=== PATIENT | male | born 1975 | race Caucasian/White ===

== ENCOUNTER 2025-03-15 15:52 | Emergency (ER) | payer OTHER, SELFPAY ==
[2025-03-15 15:54] VITALS: BP 154/108; PULSE 107; RESP 18; TEMP 36.2; O2SAT 99; BMI 33.5
--- OUTSIDE RECORDS SUMMARY | 2025-03-15 15:54 | XMS_ITS | Clinical Summary ---
Author Organization [employer] [facility] Address [address] [place] [id number] Care Team Providers Care Ceramic Engineering Professor Name Role Phone Eugene Prater MD, Michael Andrew-Sykes MD Primary Care P rovider Allergies No known active allergies Medications CPAPIndications:Un specified sleep apnea CPAP, heated humidifier, mask, headgear, filters and tubing. For home use. Pressure: 10-14 cm Length of Need: Indefinitie 1 unit 0 04/10/20 14 Active durable medical equipment (DME)Indications:O SA on CPAP CPAP maskadapter, face pad 1 Each 10/25/19 18 Active pseudoephedrine (Sudogest) 30 mg tabletIndications: Nasal congestion Take 1 Tablet (30 mg) by mouth every 4 hours if needed for Nasal Congestion. 30 tablet. 4 02/08/20 21 Active naproxen (NAPROSYN) 500 mg tabletIndications: Pain of right heel Take 1 Tablet (500 mg) by mouth every 12 hours if needed for Pain. 30 Tablet 2 12/06/19 24 Active albuterol HFA (PRO-AIR; VENTOLIN; PROVENTIL) 90 mcg/actuation inhalerIndications :Mild intermittent asthma with acute exacerbation (HC) Inhale 1-2 Puffs by mouth every 4 hours if needed for Shortness Of Breath or Wheezing. 3 Each 3 03/25/20 24 Active rosuvastatin (CRESTOR) 10 mg tabletIndications: Hyperlipidemia, unspecified hyperlipidemia type TAKE ONE TABLET BY MOUTH AT BEDTIME 90 Tablet 3 09/22/19 25 Active sertraline 100 mg tabletIndications: Major depressive disorder, recurrent episode, moderate (HC) Take 1.5 Tablets (150 mg) by mouth once daily in the morning. 135 Tablet 3 10/25/19 25 Active pantoprazole 40 mg delayed-release tabletIndications: Chronic GERD Take 1 Tablet (40 mg) by mouth once daily. 90 Tablet 3 10/25/19 25 Active BIPAPIndications:O SA (obstructive sleep apnea) BIPAP (E0470) machine for home use at pressure: 15/11 cmw, Choice of mask (A7030 or A7034) w/full face cushion (A7031) x1/mo, nasal cushion (A7032) x2/mo, or nasal pillows (A7033) x 2/mo; Length of Need: 99 months; Frequency of use: Daily 1 Each 11/14/19 25 Active Active Problems Problem Noted Date Diagnosed Date Mild intermittent asthma with acute exacerbation 08/12/2024 ANMOL 02/19/2006 AHI-56 12/23/2015 Nasal septal deviation 02/10/2014 Dyspepsia and other specifie d disorders of function of stomach 07/18/2010 Anxiety state, unspecified 08/02/2009 IBS (irritable bowel syndrome) 04/09/2009 Fibromyalgia 04/09/2009 Tobacco use disorder 02/19/2008 Major depressive disorder, recurrent episode, mo derate 02/19/2008 Encounters Date Type Department Care Team Description 01/22/2025 11:30 AM CDT Office Visit [facility] [address] [place] [address] Anika Hair PA Leg Pain/problem (Left) 01/22/2025 Travel from Last 3 Months Immunizations Immunization Administration Dates Next Due COVID-19 vaccine (Ahaali 30mcg/0.3mL) PF, MDV 08/10/2021,11/30/2020,11/09/2020 DT (Age < 7 years) 02/03/1985, 4,1974,1973 DTaP 12/12/1978,09/29/1975 Hepatitis A (Adult) 01/31/1999 Influenza, IIV3 (Age >=3 years) 07/02/2004 MMR 01/07/1993,11/27/1991,08/06/1975 Polio Virus, Unspecified 12/12/1978,08/28/1978,0 09/29/1975 Td (Age >=7 Years) 04/06/1998,11/27/1991 Td, Preservative Free (age > = 7 Years) 11/14/2024 Tdap 10/17/2011 Tuberculin (PPD) 03/06/1977 Family History Medical History Relation Name Comments Heart Disease Father Heart Disease Maternal Grandfather Heart Disease Other Relation Name Status Comments Father Maternal Grandfather Other Social History Tobacco Use Types Packs/Day Years Used Date Smoking Tobacco: Former Cigarettes 0.3 4 0 10/16/2007 - 10/16/2011 Smokeless Tobacco: Current Chew Tobacco Cessation:Ready to Q uit: No; Counseling Given: Yes Alcohol Use Standard Drinks/Week Comments Yes 5 (1 standard drink = 0.6 oz pur e alcohol) 4 times a week PHQ-2 Answer Date Recorded PHQ-2 TOTAL SCORE 0 10/24/2024 Social Connections Answer Date Recorded Do you often feel lonely or isolated from those around you? 0 01/22/2025 Financial Resource Strain Answer Date R ecorded Difficulty of Paying Living Expenses 3 01/22/2025 Difficulty of Paying Living Expenses Not on file 01/22/2025 Food Insecurity Answer Date Recorded Do you worry your food will run out before you are able to buy more? 1 01/22/2025 Transportation Needs Answer Date Record ed Does lack of transportation keep you from medica l appointments? 1 01/22/2025 Does lack of transportation keep you from work, meetings or getting things that you need? 1 01/22/2025 Housing Stability Answer Date Recorded What is your housing situation today? 1 01/22/2025 Utilities Answer Date Recorded Do you have trouble paying f or utilities (for example, heat, electricity, water, phone)? 1 01/22/2025 Sex and Gender Information Value Date Recorded Sex Assigned at Not on file Legal Sex Male 6:13 AM SERVICE GIRL Gender Identity Not on file Sexual Orientation Not on file Obstetrics History Last Filed Vital Signs Vital Sign Reading Time Taken Comments Blood Pressure 130/89 01/22/2025 11:31 AM CDT Pulse 88 01/22/2025 11:31 AM CDT Temperature 36.7 C (98.1 F) 08/12/2024 10:26 AM SERVICE GIRL Respiratory Rate 18 12/03/2017 1:50 PM CDT Oxygen Saturation 94% 01/22/2025 11: 31 AM CDT Inhaled Oxygen Concentration - - Weight 108.7 kg (239 lb 9.6 oz) 11/14/2024 9:59 AM CDT Height 175.6 cm (5' 9.13) 11/14/2024 9:59 AM CD T Body Mass Index 35.25 11/14/2024 9:59 AM CDT Plan of Treatment Health Maintenance Due Date Last Done Comments Hepatitis B series for 19+ ( 1 of 3 - 19+ 3-dose series) 1993 Pneumococcal series for age 50+ (1 of 2 - PCV) 1993 Colonoscopy through age 75 2019 Zoster (shingles) series for age 50+ (1 of 2) 2024 COVID-19 vaccine series ( season) 2024 08/10/2021, 11/30/2020, 11/09/2020 Influenza Vaccine (#1) 2025 07/02/2004 Depression screening for age 12+ 10/24/2025 10/24/2024, 08/08/2023, 08/07/2023, Additional history exists BMI (ht and wt on same day) for age 18+ 11/14/2025 11/14/2024, 10/24/2024, 04/15/2020, Additional history exists Lipids for age 45-75 11/14/2029 11/14/2024, 12/06/2023, 12/06/2023, Additional history exists Tetanus booster 11/14/2034 11/14/2024, 10/04, 04/06/1998, Additional history exists HIV for age 15-65 Completed 12/16/2015 Hepatitis C screening for ag e 18-79 Completed 12/16/2015, 12/16/2015 Procedures Procedure Name Priority Date/Time Associated Diagnosis Comments LIPID PANEL Routine 11/14/2024 11:07 AM CDT Routine general medical examination at a health care facility ANTI HIV 1/2 Routine 12/16/2015 11:48 AM CDT Screen for STD (sexually transmitted disease) ANTI HCV Routine 12/16/2015 11:48 AM CDT Screen for STD (sexually transmitted disease) from Last 3 Months or Most Recently Relevant to Health Maintenance Results * (ABNORMAL) LIPID PANEL (11/14/2024 11:07 AM CDT) CHOLESTEROL, TOTAL 158 <200 mg/dL [facility] HDL CHOLESTEROL 61 > OR = 40 mg/dL [facility] TRIGLYCERIDES 476(H) <150 mg/dL [facility] Comment: If a non-fasting specimen was collected, consider repeat triglyceride testing on a fasting specimen if clinically indicated. Jalen et al. J. of Clin. Lipidol. 2015;9:129-169. LDL-CHOLESTEROL [facility]ues [employer] [facility] Comment: LDL cholesterol not calculated. Triglyceride levels greater than 400 mg/dL invalidate calculated LDL results. Reference range: <100 Desirable range <100 mg/dL for primary prevention; <70 mg/dL for patients with CHD or diabetic patients with > or = 2 CHD risk factors. LDL-C is now calculated using the Bola-Jared calculation, which is a validated novel method providing better accuracy than the Friedewald equation in the estimation of LDL-C. Bola SS et al. STELLA. 2013;310(19): 7708-4196 (http://education.Trubates/faq/BTU465) CHOL/HDLC RATIO 2.6 <5.0 (calc) [facility] NON HDL CHOLESTEROL 97 <130 mg/dL (calc) [facility] Comment: For patients with diabetes plus 1 major ASCVD risk factor, treating to a non-HDL-C goal of <100 mg/dL (LDL-C of <70 mg/dL) is considered a therapeutic option. Blood BLOOD SPECIMEN / Unknown 11/14/2024 11:07 AM CDT 11/14/2024 11:08 AM CDT Bacilio Vasquez MD CHEMISTRY Final Result [facility] [facility] [address] [place] [address], [employer] [facility] [address] [place] [address] * (ABNORMAL) ANTI HCV (12/16/2015 11:48 AM CDT) Pathologist [facility] HEPATITIS C ANTIBODY Reactive, Preliminary Positive(A) Non-React nela 12/17/2015 8:49 AM CDT [facility] Blood specimen (specimen) BLOOD SPECIMEN / Unknown Venipuncture / Unknown 12/16/2015 11:48 AM CDT 12/16/2015 11:49 AM CDT [facility] LAB[facility]ATORY - 12/17/2015 8:49 AM CDT Presumptive evidence of antibodies to HCV. Reflexed to HCV RNA Quant (See separate report). us Garett Pearson MD SEND OUTS Final Resu lt [facility] [address] [place] [address], [place] * ANTI HIV 1/2 (12/16/2015 11:48 AM CDT) [facility] HIV-1/HIV-2 ANTIBODY Non-Reacti ve Non-Reacti ve 12/16/2015 5:39 PM CDT [facility] TR[facility] LABORAT[facility] Blood specimen (specimen) BLOOD SPECIMEN / Unknown Venipuncture / Unknown 12/16/2015 11:48 AM CDT 12/16/2015 11:49 AM CDT Narrative [facility] - 12/16/2015 5:39 PM CDT HIV-1 p24 and HIV-1/HIV-2 Ab not detected Garett Pearson MD SEND OUTS Final Resu lt [facility] [address] [place] [address], [place] from Last 3 Months or Most Recently Relevant to Health Maintenance Insurance BLUE CROSS OF NON-TX-ITS Care Teams Ceramic Engineering Professor Relationship Specialty Start Date End Date Bacilio Vasquez MD [address] [place] [address] PCP - General Family Practice 11/14/24 Eugene Prater MD Orthopedics Surgery - Orthopedics 10/09/11
--- NOTE | 2025-03-15 16:56 | ED.GENADULT ---
HPI - General Adult General Chief complaint: Anxiety Stated complaint: heart attack Time Seen by Provider: 03/15/25 16:26 History of Present Illness HPI narrative: This 50-year-old male comes in with his significant other. He is reporting lots of anxiety and some feeling of chest discomfort. He states that he is drinking a pt of vodka daily. His last drink was yesterday and he is feeling diaphoretic with some nausea and lots of anxiety. He does not report any shortness of breath. He states that he does have a history of smoking tobacco products and current history of alcohol abuse. He also reports family history of heart disease. He currently does not have any chest discomfort. He is mildly tremulous from alcohol withdrawal symptoms. Related Data Home Medications ?Medication ?Instructions ?Recorded ?Confirmed omeprazole 10 mg capsule,delayed 10 mg PO QDAY 07/02/23 03/15/25 release sertraline 100 mg tablet mg PO 07/02/23 01/02/25 rosuvastatin 10 mg tablet 10 mg PO QPM 01/02/25 03/15/25 Allergies Allergy/AdvReac Type Severity Reaction Status Date / Time No Known Drug Allergies Allergy Verified 01/02/25 13:11 Review of Systems Status of ROS: Reports: 10 or more systems reviewed and unremarkable except as noted in History and below Narrative: Constitutional: No fevers, no weight gain or loss. Eyes: No discharge. No vision changes. HENT: No congestion, no sore throat, no ear pain. Cardiovascular: No palpitations. Respiratory: No shortness of breath, no wheezes, no cough. Gastrointestinal: No abdominal pain, no vomiting, no diarrhea. Genitourinary: No dysuria, no hematuria. Musculoskeletal: Normal range of motion. Skin: No rashes, no pruritis. Neurological: No dizziness, weakness, sensory change, speech change. Endo/Heme/Allergies: No bruising or bleeding. No polydipsia. Pysch: no suicidality. He reports lots of anxiety. Alcohol abuse. All other systems reviewed and are negative. [facility] Medical History (Updated 03/15/25 @ 19:14 by Alessandro Mohan MD) Overweight ?E66.3 - Overweight (ICD-10) Asthma ?J45.909 - Unspecified asthma, uncomplicated (ICD-10) Depression ?F32.A - Depression, unspecified (ICD-10) Hyperlipidemia ?E78.5 - Hyperlipidemia, unspecified (ICD-10) GERD (gastroesophageal reflux disease) ?K21.9 - Gastro-esophageal reflux disease without esophagitis (ICD-10) Exam Narrative: Exam Narrative: Constitutional: Well-developed, well-nourished. Diaphoretic. HEENT: Normocephalic, atraumatic. Neck: Normal range of motion. Nontender. Supple. Heart: Regular. No murmurs. Borderline tachycardia. Intact distal pulses. Lungs: Clear to auscultation. No wheezes, rhonchi, or rales. Abdomen: Normal bowel sounds. Nontender. No rebound tenderness. Genitalia: Deferred. Back: No midline tenderness. Normal range of motion. Extremities: Normal range of motion. No injury. Skin: Intact. No rash. Warm. No erythema or pallor. Neurologic: No altered sensation. No weakness. Alert and oriented. Psychiatric: No suicidality. Withdrawal symptoms from alcohol. Anxiety. Nursing notes and vitals signs are reviewed. Const: Vital Signs, click to edit/add: Vital Signs - 24 hr 03/15/25 15:54 Temperature 97.1 F L Pulse Rate [Right Pulse Oximeter] 107 H Respiratory Rate 18 Blood Pressure [Ri ght Upper Arm] 154/108 H Pulse Oximetry 99 Oxygen Delivery Me thod Room Air Course Vital Signs Vital signs: Initial Vital Signs Temperature 97.1 F L 03/15/25 15:54 Temperature Source Temporal Artery Scan 03/15/25 15:54 Pulse Rate 107 H 03/15/25 15:54 Pulse Rhythm Regular 03/15/25 15:54 Pulse Strength 3+ Normal 03/15/25 15:54 Respiratory Rate 18 03/15/25 15:54 Blood Pressure 154/108 H 03/15/25 15:54 Blood Pressure Mean 123 H 03/15/25 15:54 Blood Pressure Position Sitting 03/15/25 15:54 Pulse Oximetry 99 03/15/25 15:54 Oxygen Delivery Method Room Air 03/15/25 15:54 Vital Signs Temperature 97.1 F L 03/15/25 15:54 Pulse Rate 107 H 03/15/25 15:54 Respiratory Rate 18 03/15/25 15:54 Blood Pressure 154/108 H 03/15/25 15:54 Pulse Oximetry 99 03/15/25 15:54 Oxygen Delivery Method Room Air 03/15/25 15:54 Temperature 97.1 F L 03/15/25 15:54 Pulse Rate 107 H 03/15/25 15:54 Respiratory Rate 18 03/15/25 15:54 Blood Pressure 154/108 H 03/15/25 15:54 Pulse Oximetry 99 03/15/25 15:54 Oxygen Delivery Method Room Air 03/15/25 15:54 Medications Administered Medications: Discontinued Medications Generic Name Dose Route Start Last Admin Trade Name Anamika PRN Reason Stop Dose Admin Sodium Chloride 1,000 mls @ 1,000 mls/hr 03/15/25 17:00 03/15/25 17:19 0.9 % Sodium Chloride 1000 Ml IV 03/15/25 17:59 1,000 mls/hr .Q1H MICHAEL Administration Lorazepam 1 mg 03/15/25 16:54 03/15/25 17:20 Lorazepam 1 Mg Tablet PO 03/15/25 16:55 1 mg ONCE ONE Administration Ondansetron HCl 4 mg 03/15/25 16:54 03/15/25 17:19 Ondansetron 2 Mg/Ml Inj IVP 03/15/25 16:55 4 mg ONCE ONE Administration Medical Decision Making MDM Narrative Medical decision making narrative: This patient comes in reporting anxiety in diaphoresis and states that he has been drinking lots of alcohol and has not had a drink since yesterday. He is in some withdrawal symptoms. The patient did receive an IV including normal saline and Zofran. He received an oral dose of Ativan 1 mg and all this helped him feel significantly better. Labs are acquired and these returned with reassuring results. His liver enzymes are a up a bit but nothing serious. He was happy to hear that his heart is showing normal results on EKG and troponin. I did offer detox to him but he prefers to return home. He does have a person that stays with him and so I did prescribe some tablets of Ativan from the [employer] machine. He understands that this does not mix with alcohol and states that he will have his significant other remove all the alcohol from the house. Lab Data Labs: Lab Results 03/15/25 Range/Units 17:05 WBC 9.42 (4.50-11.00) K/uL RBC 5.21 (4.30-5.90) m/uL Hgb 16.4 (13.5-17.5) gm/dL Hct 48.2 (37.0-53.0) % MCV 93 (80-100) fL MCH 32 (26-34) pg MCHC 34 (32-36) gm/dL RDW Coeff of Myke 11.5 (11.5-15.5) % Plt Count 151 (140-440) K/uL Neut % (Auto) 77.4 H (42.0-72.0) % Lymph % (Auto) 16.2 L (20-44) % Vigo % (Auto) 5.4 (0.0-11.0) % Eos % (Auto) 0.4 (0.0-7.0) % Baso % (Auto) 0.3 (0.0-3.0) % Neut # (Auto) 7.30 H (1.7-7.0) K/uL Lymph # (Auto) 1.50 (0.90-2.90) K/uL Vigo # (Auto) 0.50 (0.00-0.90) K/UL Eos # (Auto) 0.04 (0.00-0.50) K/uL Baso # (Auto) 0.03 (0.00-0.30) K/uL Abs Immat Gran (auto) 0.03 (0.00-0.30) K/uL Imm/Tot Granulo (auto) 0.3 % Sodium 138 (135-149) mmol/L Potassium 4.1 (3.6-5.1) mmol/L Chloride 101 (96-114) mmol/L Carbon Dioxide 24 (20-32) mmol/L Anion Gap 13 (7-15) mEq/L BUN 16 (7-30) mg/dL Creatinine 0.8 (0.5-1.5) mg/dL Estimated Creat Clear 105.69 Estimated GFR 107 ml/min Glucose 118 H (60-115) mg/dL Calcium 10.5 (8.4-10.6) mg/dL Total Bilirubin 2.2 H (0.1-1.5) mg/dL Direct Bilirubin 0.5 (0.0-0.5) mg/dL AST 77 H (12-35) U/L ALT 59 H (4-50) U/L Alkaline Phosphatase 128 (40-150) U/L Total Protein 8.3 (6.0-8.3) g/dL Albumin 5.1 H (3.3-5.0) g/dL Lipase 121 (23-300) U/L POC Troponin I 0.01 (0.01-0.04) ng/ml ECG Data Attestation: I personally reviewed and interpreted this ECG as follows: Interpretation: Sinus tachycardia, rate 102 beats per minute. There are no specific ST or T-wave abnormalities. Discharge Plan Discharge Clinical Impression: Alcohol withdrawal, Acute anxiety Patient Disposition: Home w/ Parent or Adult Condition: Improved Additional Instructions: Avoid alcohol and take medication as needed and directed. Follow up with MD or return if symptoms are worsening. Prescriptions: No Action sertraline 100 mg tablet PO omeprazole 10 mg capsule,delayed release(DR/EC) 10 mg PO QDAY rosuvastatin 10 mg tablet 10 mg PO QPM Follow Up/Referrals: Provider,Not a Local [Primary Care Provider, Family Practice] Stand Alone Forms: [employer] Info Instructions
[2025-03-15 17:16] LABS: Hematocrit 48.2 % (37.0-53.0); Hemoglobin* 16.4 gm/dL (13.5-17.5); Immature Granulocytes Abs Auto 0.03 K/uL (0.00-0.30); Immature Granulocytes Pct Auto 0.3 %; Mean Corpuscular HGB Conc 34 gm/dL (32-36); Mean Corpuscular Hemoglobin 32 pg (26-34); Mean Corpuscular Volume 93 fL (80-100); RDW Coefficient of Variation % 11.5 % (11.5-15.5); Red Blood Count 5.21 m/uL (4.30-5.90); White Blood Count* 9.42 K/uL (4.50-11.00)
[2025-03-15] MEDS: ONDANSETRON 2 MG/ML inj 4 MG IVP (17:19)
[2025-03-15 17:23] LABS: Lymphocytes Absolute Auto 1.50 K/uL (0.90-2.90); Slide Review Reflex No
[2025-03-15 17:39] LABS: Albumin* 5.1 g/dL (3.3-5.0); Chloride* 101 mmol/L (96-114); Potassium* 4.1 mmol/L (3.6-5.1); Sodium* 138 mmol/L (135-149)
[2025-03-15 17:40] VITALS: BP 162/102; PULSE 96; RESP 18; O2SAT 96
[2025-03-15 17:41] LABS: Blood Urea Nitrogen* 16 mg/dL (7-30); Creatinine* 0.8 mg/dL (0.5-1.5); Est. Creatinine Clearance* 105.69; Estimated Glomerular Filt Rate 107 ml/min
[2025-03-15 17:42] LABS: Alanine Aminotransferase* 59 U/L (4-50); Alkaline Phosphatase* 128 U/L (40-150); Anion Gap 13 mEq/L (7-15); Aspartate Amino Transferase* 77 U/L (12-35); Bilirubin Direct* 0.5 mg/dL (0.0-0.5); Bilirubin Total* 2.2 mg/dL (0.1-1.5); Calcium* 10.5 mg/dL (8.4-10.6); Carbon Dioxide* 24 mmol/L (20-32); Glucose* 118 mg/dL (60-115); Total Protein* 8.3 g/dL (6.0-8.3)
[2025-03-15 19:06] LABS: Troponin, Point-of-Care* 0.01 ng/ml (0.01-0.04)
[2025-03-15 19:35] VITALS: BP 159/109; PULSE 88; RESP 18; O2SAT 95
== END 2025-03-15 19:45 | disposition home or self-care (01) ==
PROVIDERS: Emergency Provider Emergency Medicine Emergency Medical Services
DX: F10.130 Alcohol abuse with withdrawal, uncomplicated (principal); F41.9 Anxiety disorder, unspecified
CPT/HCPCS: 36415; 80048; 80076; 83690; 84484; 85025; 93005; 96374; 99284; A9270; J2405; J7030

== ENCOUNTER 2025-05-22 06:49 | Inpatient (IN) | payer OTHER, SELFPAY ==
[2025-05-22] VITALS (23 sets, daily range): BP systolic 137–182; BP diastolic 91–117; PULSE 73–115; RESP 16–28; TEMP 36.2–37.9; O2SAT 24–97; BMI 19.9; BMI 34.0
--- OUTSIDE RECORDS SUMMARY | 2025-05-22 06:51 | XMS_ITS | Clinical Summary ---
Author Organization [employer] [facility] Address [address] [place] [id number] Care Team Providers Care Campus Director Name Role Phone Eugene Prater MD, Michael [...] depressive disorder, recurrent episode, mo derate 02/19/2008 Immunizations Immunization Administration Dates Next Due COVID-19 vaccine ([employer] 30mcg/0.3mL) PF, MDV 08/10/2021,11/30/2020,11/09/2020 DT (Age < [...] on file Legal Sex Male 6:13 AM CARDIO TECH Gender Identity Not on file Sexual Orientation Not on file Obstetrics History Last Filed Vital Signs Vital Sign Reading Time Taken Comments Blood Pressure 130/89 01/22/2025 11:31 AM CDT Pulse 88 01/22/2025 11:31 AM CDT Temperature 36.7 C (98.1 F) 08/12/2024 10:26 AM CARDIO TECH Respiratory Rate 18 12/03/2017 1:50 PM CDT [...] of 2) 2024 COVID-19 vaccine series ( - 2024- season) 2025 08/10/2021, 11/30/2020, 11/09/2020 Influenza Vaccine (#1) 2025 07/02/2004 Depression screening for age 12+ 10/24/2025 10/24/2024, 08/08/2023, 08/07/2023, Additional history exists BMI (ht and wt on same day) for age 18+ 11/14/2025 11/14/2024, 10/24/2024, 04/15/2020, Additional history exists Lipids for age 45-75 11/14/2029 11/14/2024, 12/06/2023, 12/06/2023, Additional history exists Tetanus booster 11/14/2034 11/14/2024, 10/04, 04/06/1998, Additional history exists RSV vaccine for adults or (1 - 1-dose 75+ series) 2049 HIV for age 15-65 Completed 12/16/2015 Hepatitis [...] (ABNORMAL) LIPID PANEL (11/14/2024 11:07 AM CDT) [facility] Signature CHOLESTEROL, TOTAL 158 <200 mg/dL [facility] HDL CHOLESTEROL 61 > OR = 40 mg/dL [facility] TRIGLYCERIDES 476(H) <150 mg/dL [facility] Comment: If a non-fasting specimen was collected, consider repeat triglyceride testing on a fasting specimen if clinically indicated. Jalen et al. J. of Clin. Lipidol. 2015;9:129-169. LDL-CHOLESTEROL Ques [employer] Comment: LDL cholesterol not calculated. Triglyceride levels greater than 400 mg/dL invalidate calculated LDL results. Reference range: <100 Desirable range <100 mg/dL for primary prevention; <70 mg/dL for patients with CHD or diabetic patients with > or = 2 CHD risk factors. LDL-C is now calculated using the Ángel calculation, which is a validated novel method providing better accuracy than the Friedewald equation in the estimation of LDL-C. Bola HARVEY et al. STELLA. 2013;310(19): 7992-8726 (http://education.Trading Block/faq/BXW939) CHOL/HDLC RATIO 2.6 <5.0 (calc) [facility] NON HDL CHOLESTEROL 97 <130 mg/dL (calc) [facility] Comment: For patients with diabetes plus 1 major ASCVD risk factor, treating to a non-HDL-C goal of <100 mg/dL (LDL-C of <70 mg/dL) is considered a therapeutic option. Blood BLOOD SPECIMEN / Unknown 11/14/2024 11:07 AM CDT 11/14/2024 11:08 AM CDT Bacilio Vasquez MD CHEMISTRY Final Result [employer] [facility] [address] [place] [address], [facility] [address] [facility] [place] [address] * (ABNORMAL) ANTI HCV (12/16/2015 11:48 AM CDT) HEPATITIS C ANTIBODY Reactive, Preliminary Positive(A) Non-React nela 12/17/2015 8:49 AM CDT [facility] Blood specimen (specimen) BLOOD SPECIMEN / Unknown Venipuncture / Unknown 12/16/2015 11:48 AM CDT 12/16/2015 11:49 AM CDT [facility] LABORATORY - 12/17/2015 8:49 AM CDT Presumptive evidence of antibodies to HCV. Reflexed to HCV RNA Quant (See separate report). us Garett Pearson MD SEND OUTS Final Resu lt [facility] [address] [place] [address], * ANTI HIV 1/2 (12/16/2015 11:48 AM CDT) Pathologist [facility] HIV-1/HIV-2 ANTIBODY Non-Reacti ve Non-Reacti ve 12/16/2015 5:39 PM CDT [facility] Blood specimen (specimen) BLOOD SPECIMEN / Unknown Venipuncture / Unknown 12/16/2015 11:48 AM CDT 12/16/2015 11:49 AM CDT [facility] - 12/16/2015 5:39 PM CDT HIV-1 p24 and HIV-1/HIV-2 Ab not detected us Garett Pearson MD SEND OUTS Final Resu lt [facility] [address] [place] [address], from Last 3 Months or Most Recently Relevant to Health Maintenance [place] [address] [place] [address] [place] [address] Care Teams Campus Director Relationship Specialty Start Date End Date Bacilio Vasquez MD [address] [place] [address] PCP - General Family Practice 11/14/24 Eugene Prater MD Orthopedics Surgery - Orthopedics 10/09/11
--- NOTE | 2025-05-22 06:58 | ED_ITS ---
HPI - Abdominal Pain General Time Seen by Provider: 06:58 Date Seen: 05/22/25 Chief Complaint: Abdominal Pain Stated Complaint: abdominal and back pain Time Seen by Provider: 05/22/25 06:58 Source: patient Mode of arrival: ambulatory Limitations: no limitations History of Present Illness HPI narrative: 50-year-old male with history of reflux and alcohol dependence presents today with abdominal pain. This started yesterday. Is in the left-sided more toward the middle, did vomit little bit but not much. No fevers or chills, no difficulty urinating. The day prior to this he had some diarrhea. He continues to drink pt of vodka daily loose not had a drink for 24 hours due to pain. Related Data Home Medications ?Medication ?Instructions ?Recorded ?Confirmed omeprazole 10 mg capsule,delayed 10 mg PO QDAY 3 05/22/25 release sertraline 100 mg tablet mg PO 07/02/23 01/02/25 rosuvastatin 10 mg tablet 10 mg PO QPM 01/02/25 pantoprazole 20 mg tablet,delayed 20 mg PO DAILY 05/2205/22/25 release (Protonix) Allergies Allergy/AdvReac Type Severity Reaction Status Date / Time No Known Drug Allergies Allergy Verified 01/02/25 13:11 [facility] Medical History (Updated 05/22/25 @ 07:54 by Dawit Villatoro MD) Overweight ?E66.3 - Overweight (ICD-10) Asthma ?J45.909 - Unspecified asthma, uncomplicated (ICD-10) Depression ?F32.A - Depression, unspecified (ICD-10) Hyperlipidemia ?E78.5 - Hyperlipidemia, unspecified (ICD-10) GERD (gastroesophageal reflux disease) ?K21.9 - Gastro-esophageal reflux disease without esophagitis (ICD-10) Social History service: No Exam Narrative: Exam Narrative: General: Well-developed and well-nourished, no acute distress Head: Atraumatic and normocephalic Eyes: Pupils are equal reactive, extraocular motions intact, conjunctiva clear ENT: External nose and ears are normal, posterior pharynx without erythema or exudate Neck: No midline cervical tenderness, full spontaneous range of motion the ne ck, trachea midline, no adenopathy Heart: Regular rate and rhythm no murmurs or thrills Lungs: Clear to auscultation bilaterally without wheezes or crackles Abdomen: Distended, diffusely tender, absent bowel sounds Musculoskeletal: No tenderness, deformity, or edema Neurologic: Awake, alert, and oriented x3, no gross focal neurologic deficits, cranial nerves intact as tested Psych: Mood and affect are appropriate Skin: No rashes Const: Vital Signs, click to edit/add: Vital Signs - 24 hr 05/22/25 06:55 05/22/25 07:04 05/22/25 07:15 Temperature 98 F Pulse Rate 85 87 Pulse Rate [Pulse Oximeter] 93 Respiratory Rate 20 Blood Pressure Blood Pressure [Ri ght Upper Arm] 178/117 H Pulse Oximetry 95 95 96 Oxygen Delivery Me thod Room Air 05/22/25 07:22 05/22/25 07:39 05/22/25 07:45 Temperature Pulse Rate 85 73 85 Pulse Rate [Pulse Oximeter] Respiratory Rate Blood Pressure 155/99 H Blood Pressure [Ri ght Upper Arm] Pulse Oximetry 87 L 97 94 Oxygen Delivery Me thod 05/22/25 07:46 Temperature Pulse Rate 91 Pulse Rate [Pulse Oximeter] Respiratory Rate Blood Pressure 174/104 H Blood Pressure [Ri ght Upper Arm] Pulse Oximetry 94 Oxygen Delivery Me thod Course Course ED Course: Reviewed most recent emergency department visit from March 15 patient seen with chest pain comment that time was drinking a pint of vodka daily and still to be having alcohol removed, at veins given fluids were given. Patient seen examined, since today with abdominal pain. He has some generalized abdominal pain and tenderness, abdomen is distended with absent bowel sounds. History of pretty heavy alcohol use. Concern for pancreatitis, bowel obstruction. Patient has no jaundice or scleral icterus, biliary obstruction or acute hepatitis unlikely. Labs and CT scan ordered along with Zofran and Dilaudid. Reevaluation(s) Time of Reevaluation #1: 07:39 Reevaluation #1: Labs independently interpreted by me with white blood cell count 17.9, lactate 2.5, IV fluids ordered but will defer antibiotics for now given likely pancreatitis as source of systemic inflammatory response. CT independently interpreted by me with peripancreatic inflammation predominantly around the tail. Likely pancreatitis, anticipate admission. Time of Reevaluation #2: 07:48 Reevaluation #2: Labs independently interpreted by me with AST 140, ALT 95, bilirubin 0.9, lipase 1600. Time of Reevaluation #3: 08:00 Reevaluation #3: Updated patient with findings and plan. Care discussed with Dr. Hendrickson for admission. Vital Signs Vital signs: Initial Vital Signs Temperature 98 F 05/22/25 06:55 Temperature Source Temporal Artery Scan 05/22/25 06:55 Pulse Rate 93 05/22/25 06:55 Respiratory Rate 20 05/22/25 06:55 Blood Pressure 178/117 H 05/22/25 06:55 Blood Pressure Mean 137 H 05/22/25 06:55 Blood Pressure Position Semi-Fowlers 05/22/25 06:55 Pulse Oximetry 95 05/22/25 06:55 Oxygen Delivery Method Room Air 05/22/25 06:55 Vital Signs Temperature 98 F 05/22/25 06:55 Pulse Rate 93 05/22/25 06:55 Respiratory Rate 20 05/22/25 06:55 Blood Pressure 178/117 H 05/22/25 06:55 Pulse Oximetry 95 05/22/25 06:55 Oxygen Delivery Method Room Air 05/22/25 06:55 Temperature 98 F 05/22/25 06:55 Pulse Rate 91 05/22/25 07:46 Respiratory Rate 20 05/22/25 06:55 Blood Pressure 174/104 H 05/22/25 07:46 Pulse Oximetry 94 05/22/25 07:46 Oxygen Delivery Method Room Air 05/22/25 06:55 Medications Administered Medications: Discontinued Medications Generic Name Dose Route Start Last Admin Trade Name Freq PRN Reason Stop Dose Admin Hydromorphone HCl 0.5 mg 05/22/25 07:08 05/22/25 07:16 Hydromorphone 0.5 Mg/0.5 Ml Inj IVP 05/22/25 07:09 0.5 mg ONCE ONE Administration Sodium Chloride 1,000 mls @ 6,000 mls/hr 05/22/25 07:40 05/22/25 07:50 0.9 % Sodium Chloride 1000 Ml IV 05/22/25 07:49 6,000 mls/hr .Q10M MICHAEL Administration Ondansetron HCl 4 mg 05/22/25 07:08 05/22/25 07:16 Ondansetron 2 Mg/Ml Inj IVP 05/22/25 07:09 4 mg ONCE ONE Administration MDM - Abdominal Pain Lab Data Labs: Lab Results 05/22/25 Range/Units 07:01 WBC 17.96 H (4.50-11.00) K/uL RBC 5.20 (4.30-5.90) m/uL Hgb 16.3 (13.5-17.5) gm/dL Hct 48.7 (37.0-53.0) % MCV 94 (80-100) fL MCH 31 (26-34) pg MCHC 34 (32-36) gm/dL RDW Coeff of [place]ke 12.5 (11.5-15.5) % Plt Count 140 (140-440) K/uL Neut % (Auto) 85.3 H (42.0-72.0) % Lymph % (Auto) 8.1 L (20-44) % [place] % (Auto) 5.7 (0.0-11.0) % Eos % (Auto) 0.3 (0.0-7.0) % Baso % (Auto) 0.2 (0.0-3.0) % Neut # (Auto) 15.30 H (1.7-7.0) K/uL Lymph # (Auto) 1.50 (0.90-2.90) K/uL [place] # (Auto) 1.00 H (0.00-0.90) K/UL Eos # (Auto) 0.10 (0.00-0.50) K/uL Baso # (Auto) 0.00 (0.00-0.30) K/uL Abs Immat Gran (auto) 0.10 (0.00-0.30) K/uL Imm/Tot Granulo (auto) 0.4 % Sodium 132 L (135-149) mmol/L Potassium 4.7 (3.6-5.1) mmol/L Chloride 97 (96-114) mmol/L Carbon Dioxide 23 (20-32) mmol/L Anion Gap 12 (7-15) mEq/L BUN 14 (7-30) mg/dL Creatinine 0.7 (0.5-1.5) mg/dL Estimated Creat Clear 108.13 Estimated GFR 112 ml/min Glucose 151 H (60-115) mg/dL Lactate 2.5 H (0.5-1.9) mmol/L Calcium 9.9 (8.4-10.6) mg/dL Magnesium 1.7 (1.5-2.6) mg/dL Total Bilirubin 2.2 H (0.1-1.5) mg/dL Direct Bilirubin 0.9 H (0.0-0.5) mg/dL AST 140 H (12-35) U/L ALT 95 H (4-50) U/L Alkaline Phosphatase 127 (40-150) U/L Total Protein 8.6 H (6.0-8.3) g/dL Albumin 4.8 (3.3-5.0) g/dL Lipase 1600 H (23-300) U/L Discharge Plan Discharge Clinical Impression: Alcohol dependence, Acute alcoholic pancreatitis Patient Disposition: Admitted As Inpatient
--- NOTE | 2025-05-22 07:09 | CRLHL7_ITS ---
For Patients: As a result of the Century Cures Act, medical imaging exams and procedure reports are released immediately into your electronic medical record. You may view this report before your referring provider. If you have questions, please contact your health care provider. INDICATION: Abdominal pain/distension. TECHNIQUE: CT abdomen and pelvis acquired with 66 cc Isovue 370 IV contrast. COMPARISON: CT abdomen and pelvis December 2016 FINDINGS: Lower chest: Dependent atelectasis. Liver: Liver is enlarged (19 centimeter).. Diffuse hepatic steatosis. Gallbladder and bile ducts: No stones or inflammation. No biliary dilatation. Pancreas: Moderate peripancreatic fatty and fluid stranding, predominantly along the distal body and tail. Suggestion of minimal nonenhancing parenchyma within tail. No loculated fluid collection. Spleen: Normal in size. No masses. Adrenal glands: No suspicious mass. Kidneys: Bilateral kidneys are normal in size with symmetric enhancement. No nephrolithiasis or hydronephrosis. GI tract: No findings of bowel obstruction. Normal appendix. Small hiatal hernia. Vasculature: Abdominal aorta is normal in caliber. Lymph nodes: No lymphadenopathy. Peritoneum/Abdominal Wall: No free air. Minimal free fluid along the perisplenic region, left paracolic gutter. Diffuse mesenteric fat stranding. Pelvis: Unremarkable. Bones: Unremarkable for age. IMPRESSION: 1. Findings are concerning for acute pancreatitis with minimal nonenhancing parenchyma within the tail. No loculated fluid collection. 3. Hepatomegaly with diffuse hepatic steatosis. Please note that all CT scans at this facility use dose modulation, iterative reconstruction, and/or weight-based dosing when appropriate to reduce radiation dose to as low as reasonably achievable. Dictated by Dominguez Richter MD @ 05/22/2025 7:55:43 AM (Electronically Signed)
[2025-05-22] MEDS: ONDANSETRON 2 MG/ML inj 4 MG IVP (07:16)
[2025-05-22 07:21] LABS: Hematocrit* 48.7 % (37.0-53.0); Hemoglobin* 16.3 gm/dL (13.5-17.5); Immature Granulocytes Pct Auto 0.4 %; Lactate* 2.5 mmol/L (0.5-1.9); Mean Corpuscular HGB Conc 34 gm/dL (32-36); Mean Corpuscular Hemoglobin 31 pg (26-34); Mean Corpuscular Volume 94 fL (80-100); RDW Coefficient of Variation % 12.5 % (11.5-15.5); Red Blood Count* 5.20 m/uL (4.30-5.90); White Blood Count* 17.96 K/uL (4.50-11.00)
[2025-05-22 07:25] LABS: Immature Granulocytes Abs Auto 0.10 K/uL (0.00-0.30); Lymphocytes Absolute Auto 1.50 K/uL (0.90-2.90); Slide Review Reflex No
[2025-05-22 07:40] LABS: Albumin* 4.8 g/dL (3.3-5.0); Chloride* 97 mmol/L (96-114); Potassium* 4.7 mmol/L (3.6-5.1); Sodium* 132 mmol/L (135-149)
[2025-05-22 07:43] LABS: Alanine Aminotransferase* 95 U/L (4-50); Alkaline Phosphatase* 127 U/L (40-150); Anion Gap 12 mEq/L (7-15); Aspartate Amino Transferase* 140 U/L (12-35); Bilirubin Direct* 0.9 mg/dL (0.0-0.5); Bilirubin Total* 2.2 mg/dL (0.1-1.5); Blood Urea Nitrogen* 14 mg/dL (7-30); Calcium* 9.9 mg/dL (8.4-10.6); Carbon Dioxide* 23 mmol/L (20-32); Creatinine* 0.7 mg/dL (0.5-1.5); Est. Creatinine Clearance* 108.13; Estimated Glomerular Filt Rate 112 ml/min; Glucose* 151 mg/dL (60-115); Total Protein* 8.6 g/dL (6.0-8.3)
--- NOTE | 2025-05-22 09:45 | CRLHL7_ITS ---
For Patients: As a result of the Century Cures Act, medical imaging exams and procedure reports are released immediately into your electronic medical record. You may view this report before your referring provider. If you have questions, please contact your health care provider. INDICATION: Acute pancreatitis, elevated bilirubin TECHNIQUE: Ultrasound abdomen limited. Sonographic images of the right upper quadrant were obtained using harding-scale and color Doppler images. COMPARISON: Same day CT abdomen and pelvis with contrast. FINDINGS: Overall limited sonographic visualization secondary to overlying bowel gas. Liver: Heterogeneous and echogenic. Gallbladder: No stones or sludge. Normal wall thickness measuring 3 millimeters. No pericholecystic fluid. Common bile duct: Not well visualized. Pancreas: Partially visualized with heterogeneous, echogenic pancreatic parenchyma. Right kidney: Normal in size. Normal echotexture and cortex. No suspicious masses, stones, or hydronephrosis. Proximal abdominal aorta: Normal in caliber. IVC: Patent. Main portal vein: Patent. Ascites: None visualized. IMPRESSION: 1. Technically suboptimal exam secondary to bowel gas. 2. Partially visualized pancreas with heterogeneous, echogenic parenchyma. 3. Hepatic steatosis. Dictated by Debby Kenny MD @ 05/22/2025 11:03:59 AM (Electronically Signed)
[2025-05-22] MEDS: ACETAMINOPHEN 325 MG TABLET 650 MG PO ×3 (10:03→21:05)
[2025-05-22 11:16] LABS: Appearance Urine Clear (Clear)
--- NOTE | 2025-05-22 13:05 | PM.IMHP1 ---
Assessment and Plan Assessment and plan (1) Acute alcoholic pancreatitis: Problem comment: - Slowly advance diet as tolerated. IV fluids for now. - analgesics anti-emetics as needed - reviewed with him the pathophysiology of his condition. Recommended avoidance of alcohol consumption lifelong hereafter. Status: Acute (2) Alcohol dependence: Problem comment: - recommended assessment and treatment for alcohol dependence and lifelong sobriety hereafter - social media developer to assess and assist - CIWA driven protocol while in hospital plus gabapentin 300 mg 3 times daily for preventive purposes Status: Acute Plan 1. Reviewed impression, plans, recommendations with patient 2. Answered his questions to satisfaction 3. Recommend follow-up with outpatient primary rehab care assistant hereafter 4. Patient agreeable with above stated plans and recommendations Total Time Spent Total Time Spent: 70 Hospitalist- H&P: HPI History of Present Illness Date Seen: 05/22/25 Chief complaint: abdominal and back pain Narrative: Dedrick Washington is a 50 year old man with the 24 hour history of epigastric pain radiating into the back. Some nausea with 1 episode of retching but no vomiting. No hematemesis or any other blood loss. Acknowledges drinking upwards of 1-2 pt of vodka (16-32 oz) daily lately. States he lost his job in his home and now lives in apartment which has been hard on him and he has been drinking more in consequence of the same. Denies similar problem in the past. Denies icterus or jaundice. Denies dark urine or light-colored stool. Denies dysuria, urgency, frequency, hematuria. Denies diarrhea or constipation. Review of Systems Status of ROS: Reports: 10 or more systems reviewed and unremarkable except as noted in History and below Narrative: Denies chest heaviness, pressure, tightness, pain. Denies dyspnea at rest, paroxysmal nocturnal dyspnea, orthopnea. Denies edema. Denies cough denies lightheadedness, dizziness, orthostasis, syncope or near syncope. No recent febrile illness. No recent travel. No recent trauma or injury. Active tobacco use and alcohol use. History of alcohol withdrawals with tremors and diaphoresis. Denies history of delirium tremens or withdrawal seizures. Medical Decision Making Medical Decision Making Has patient completed a Health Care Directive: No PFSH [facility] Medical History Obstructive sleep apnea ?G47.33 - Obstructive sleep apnea (adult) (pediatric) (ICD-10) Tobacco use disorder (02/19/08) ?F17.200 - Nicotine dependence, unspecified, uncomplicated (ICD-10) Nasal septal deviation (02/10/14) ?J34.2 - Deviated nasal septum (ICD-10) IBS (irritable bowel syndrome) (04/09/09) ?K58.9 - Irritable bowel syndrome, unspecified (ICD-10) Fibromyalgia (04/09/09) ?M79.7 - Fibromyalgia (ICD-10) Anxiety state, unspecified (08/02/09) ?F41.1 - Generalized anxiety disorder (ICD-10) Overweight ?E66.3 - Overweight (ICD-10) Asthma ?J45.909 - Unspecified asthma, uncomplicated (ICD-10) Depression ?F32.A - Depression, unspecified (ICD-10) Hyperlipidemia ?E78.5 - Hyperlipidemia, unspecified (ICD-10) GERD (gastroesophageal reflux disease) ?K21.9 - Gastro-esophageal reflux disease without esophagitis (ICD-10) Social History What is your current living situation?: I presently have a place to live Problems where you live: no known problems In the past 12 months, utilities in danger of being shut off: no In past 12 months, lack of transportation kept you from medical appts, meetings, work, or getting things needed for daily living: no In the past 12 mos, have been you worried that your food would run out before you had money to buy more?: never true In the past 12 mos, the food you bought just didn't last and you didn't have money to buy more?: never true Highest level of school completed/degree received: some college, no degree Smoking Status: Current every day smoker What tobacco products do you use: cigarettes How often do you have a drink containing alcohol: 4 or more times a week Alcohol type: hard liquor How many standard drinks containing alcohol do you have on a typical day: 3 or 4 AUDIT-C Alcohol total score: 5 Non-prescribed substance use: denies use Caffeine: Yes (pop) How often does anyone, including family, friends and others, physically hurt you: never How often does anyone, including family, friends and others, insult or talk down to you: never How often does anyone, including family, friends and others, threaten you with harm: never How often does anyone, including family, friends and others, scream or curse at you: never service: No Meds Home Medications and Allergies Home Medications ?Medication ?Instructions ?Recorded ?Confirmed ?Type omeprazole 10 mg capsule,delayed 10 mg PO QDAY 07/02/23 05/22/25 History release sertraline 100 mg tablet 150 mg PO DAILY 07/02/23 05/22/25 History rosuvastatin 10 mg tablet 10 mg PO QPM 01/02/25 05/22/25 History pantoprazole 40 mg tablet,delayed 40 mg PO DAILY 05/22/25 05/22/25 History release Allergies Allergy/AdvReac Type Severity Reaction Status Date / Time No Known Drug Allergies Allergy Verified 01/02/25 13:11 Exam Narrative: Exam Narrative: Assess patient in the emergency department. Friendly and cooperative. Anxious, nevertheless articulate. Oriented x4. No diaphoresis or tremors. No icterus or jaundice. No petechiae. No cyanosis. Cranial nerves 3-12 grossly normal. Dry buccal mucosa with dentition in only fair repair. Neck is supple. Midline trachea. No JVD, hepatojugular reflux, carotid bruits. Lungs are clear to auscultation without wheezing, rhonchi, rales. Chest wall excursions are full. Heart tones with regular rhythm, normal S1-S2, without murmur, gallop, rub. PMI not laterally displaced. Does have active bowel sounds as I listen to his abdomen. Distended abdomen with subjective discomfort to palpation particularly in the epigastrium. Nevertheless no rebound or guarding. Extremities without edema. Moves all 4 extremities. Independent with transfer, station, gait. Const: Vital Signs, click to edit/add: Vital Signs - 24 hr 05/22/25 06:55 05/22/25 07:04 05/22/25 07:15 Temperature 98 F Pulse Rate 85 87 Pulse Rate [Pulse Oximeter] 93 Respiratory Rate 20 Blood Pressure Blood Pressure [Ri ght Arm] Blood Pressure [Ri ght Upper Arm] 178/117 H Pulse Oximetry 95 95 96 Oxygen Delivery Me thod Room Air Oxygen Flow Rate 05/22/25 07:19 05/22/25 07:19 05/22/25 07:22 Temperature Pulse Rate 85 Pulse Rate [Pulse Oximeter] Respiratory Rate Blood Pressure 155/99 H Blood Pressure [Ri ght Arm] Blood Pressure [Ri ght Upper Arm] Pulse Oximetry 86 L 87 L 87 L Oxygen Delivery Me thod Room Air Oxygen Flow Rate 2 05/22/25 07:39 05/22/25 07:45 05/22/25 07:46 Temperature Pulse Rate 73 85 91 Pulse Rate [Pulse Oximeter] Respiratory Rate Blood Pressure 174/104 H Blood Pressure [Ri ght Arm] Blood Pressure [Ri ght Upper Arm] Pulse Oximetry 97 94 94 Oxygen Delivery Me thod Oxygen Flow Rate 05/22/25 07:47 05/22/25 08:00 05/22/25 08:02 Temperature Pulse Rate 81 80 84 Pulse Rate [Pulse Oximeter] Respiratory Rate Blood Pressure 168/102 H Blood Pressure [Ri ght Arm] Blood Pressure [Ri ght Upper Arm] Pulse Oximetry 96 96 95 Oxygen Delivery Me thod Oxygen Flow Rate 05/22/25 08:15 05/22/25 08:30 05/22/25 08:32 Temperature Pulse Rate 85 85 87 Pulse Rate [Pulse Oximeter] Respiratory Rate Blood Pressure 182/113 H Blood Pressure [Ri ght Arm] Blood Pressure [Ri ght Upper Arm] Pulse Oximetry 95 96 96 Oxygen Delivery Me thod Oxygen Flow Rate 05/22/25 09:05 05/22/25 09:07 05/22/25 09:12 Temperature 99.1 F 99.1 F Pulse Rate Pulse Rate [Pulse Oximeter] 86 Respiratory Rate 16 16 16 Blood Pressure Blood Pressure [Ri ght Arm] 168/104 H 168/104 H Blood Pressure [Ri ght Upper Arm] Pulse Oximetry 96 96 96 Oxygen Delivery Me thod Room Air Room Air Room Air Oxygen Flow Rate 05/22/25 10:07 05/22/25 11:30 05/22/25 11:30 Temperature 99.5 F 99.2 F 99.2 F Pulse Rate Pulse Rate [Pulse Oximeter] 86 84 84 Respiratory Rate 16 24 24 Blood Pressure Blood Pressure [Ri ght Arm] 162/97 H 161/102 H 161/102 H Blood Pressure [Ri ght Upper Arm] Pulse Oximetry 91 24 L 92 Oxygen Delivery Me thod Room Air Room Air Room Air Oxygen Flow Rate Hospitalist - H&P: Result Labs Labs: Short CBC 10/17/25 Range/Units 07:01 WBC 17.96 H (4.50-11.00) K/uL Hgb 16.3 (13.5-17.5) gm/dL Hct 48.7 (37.0-53.0) % Plt Count 140 (140-440) K/uL BMP 05/22/25 07:01 Sodium 132 L Potassium 4.7 Chloride 97 Carbon Dioxide 23 BUN 14 Creatinine 0.7 Glucose 151 H Calcium 9.9 Liver Function 05/22/25 Range/Units 07:01 Total Bilirubin 2.2 H (0.1-1.5) mg/dL Direct Bilirubin 0.9 H (0.0-0.5) mg/dL AST 140 H (12-35) U/L ALT 95 H (4-50) U/L Alkaline Phosphatase 127 (40-150) U/L Albumin 4.8 (3.3-5.0) g/dL Urine 05/22/25 Range/Units 11:00 Urine Color [place] A (Yellow) Urine Appearance Clear (Clear) Urine pH 5.5 (5.0-8.5) Ur Specific [place] 1.015 (1.000-1.030) Urine Protein Negative (Negative) Urine Glucose (UA) Negative (Negative) Imaging CT scan - abdomen: Radiologist's impression: Diffuse hepatic steatosis. Moderate peripancreatic fatty in fluid stranding predominantly along the distal body and tail suggestive of pancreatitis. No gallbladder or bile duct abnormalities including no stones or biliary ductal dilatation. US - abdomen: Radiologist's impression: Technically difficult exam. No obvious stones. Hepatics steatosis noted.
[2025-05-22] MEDS: GABAPENTIN 300 MG CAPSULE PO ×2 (14:23→21:05)
--- NOTE | 2025-05-22 19:43 | PC.NURSE ---
End of Shift: Patient pleasant and cooperative. Patient hypertensive but stable, lungs clear, BS WNL, IV running NS at 125. Patient has rated abdominal pain at most an 8/10 and minimum 4/10, tylenol and 5mg of oxy given x2. Patients highest CIWA was 11, three 1-hour assessment for CIWA was missed due to work load. This RN would not give patient ativan as with oxycodone patients oxygenation decreased below 90. Patient is extremely sweaty, drenching bed, and does have tremors, had headache in the morning but then resolved. During napping 1 L oxygen was used with sats in low 90s. Patient urinating well, no BM. Patient is independent in room.
[2025-05-22] MEDS: THIAMINE 100 MG TABLET 250 MG PO (21:05)
[2025-05-22] MEDS: SODIUM CHLORIDE 0.9 % (FLUSH) 10 ML SYRINGE 5 ML IVF (21:06)
[2025-05-22] MEDS: ENOXAPARIN 40 MG/0.4 ML INJ SUBCUT (21:06)
[2025-05-22] MEDS: PHENobarbitaL 260 MG in 0.9 % SODIUM CHLORIDE 100 ml 100 ML 208 MG IVPB (23:50)
[2025-05-23] VITALS (16 sets, daily range): BP systolic 126–154; BP diastolic 81–104; PULSE 96–115; RESP 18–28; TEMP 36.2–37.7; O2SAT 90–95
[2025-05-23] MEDS: ACETAMINOPHEN 325 MG TABLET 650 MG PO ×4 (03:30→21:05)
[2025-05-23 06:13] LABS: HCO3 VBG 29 mmol/L (21-28); Lactate* 1.1 mmol/L (0.5-1.9); PCO2 VBG 47 mmHG (40-50); PO2 VBG 31.2 mmHG (25-47); pH VBG 7.393 (7.32-7.43)
[2025-05-23 06:14] LABS: Hematocrit* 43.2 % (37.0-53.0); Hemoglobin* 14.1 gm/dL (13.5-17.5); Mean Corpuscular HGB Conc 33 gm/dL (32-36); Mean Corpuscular Hemoglobin 32 pg (26-34); Mean Corpuscular Volume 97 fL (80-100); Red Blood Count* 4.45 m/uL (4.30-5.90); White Blood Count* 13.32 K/uL (4.50-11.00)
[2025-05-23 06:19] LABS: Slide Review Reflex No
[2025-05-23 06:32] LABS: Albumin* 3.6 g/dL (3.3-5.0); Chloride* 99 mmol/L (96-114); Sodium* 132 mmol/L (135-149)
[2025-05-23 06:33] LABS: Potassium* 3.7 mmol/L (3.6-5.1)
[2025-05-23 06:35] LABS: Alanine Aminotransferase* 52 U/L (4-50); Alkaline Phosphatase* 96 U/L (40-150); Anion Gap 5 mEq/L (7-15); Aspartate Amino Transferase* 65 U/L (12-35); Bilirubin Total* 2.1 mg/dL (0.1-1.5); Blood Urea Nitrogen* 11 mg/dL (7-30); Carbon Dioxide* 28 mmol/L (20-32); Creatinine* 0.8 mg/dL (0.5-1.5); Est. Creatinine Clearance* 109.24; Estimated Glomerular Filt Rate 107 ml/min; Total Protein* 6.5 g/dL (6.0-8.3)
[2025-05-23 06:36] LABS: Calcium* 8.8 mg/dL (8.4-10.6); Glucose* 135 mg/dL (60-115)
[2025-05-23] MEDS: OMEPRAZOLE 20 MG CAPSULE DR 40 MG PO (06:50)
--- NOTE | 2025-05-23 07:03 | PC.NURSE ---
Pt denies pain or headache. Dyphoretic but states I am like this often, bedding changed as needed. Up independently in room to use bathroom. See charting and MAR for CIWA protocol and medications associated with CIWA score. Pt is asking if he will be discharged today, referred to speak with during rounds.
[2025-05-23 09:03] LABS: Bilirubin Direct* 1.2 mg/dL (0.0-0.5)
[2025-05-23] MEDS: FOLIC ACID 1 MG TABLET PO (09:39)
[2025-05-23] MEDS: MULTIVITAMIN/MINERALS 1 TABLET 1 TAB PO (09:41)
[2025-05-23] MEDS: GABAPENTIN 300 MG CAPSULE PO ×3 (09:42→21:05)
[2025-05-23] MEDS: SERTRALINE 100 MG TABLET 150 MG PO (09:42)
[2025-05-23] MEDS: THIAMINE 100 MG TABLET 250 MG PO ×2 (09:42→21:05)
--- NOTE | 2025-05-23 13:36 | P.IMPN_ITS ---
Assessment and Plan Assessment and plan (1) Acute alcoholic pancreatitis: Problem comment: - Slowly advance diet as tolerated. IV fluids for now. - analgesics anti-emetics as needed - reviewed with him the pathophysiology of his condition. Recommended avoidance of alcohol consumption lifelong hereafter. 05/23/2025: Advance diet. Increase activity. Administer another dose of phenobarb. Continue with scheduled gabapentin 3 mg 3 times daily as well as p.r.n. CIWA protocol of lorazepam. Consider reimaging with CT scan of chest, abdomen, pelvis if has persistent fever. Status: Acute (2) Alcohol dependence: Problem comment: - recommended assessment and treatment for alcohol dependence and lifelong sobriety hereafter - social sciences research scientist to assess and assist - CIWA driven protocol while in hospital plus gabapentin 300 mg 3 times daily for preventive purposes Status: Acute (3) Tobacco use disorder: Status: Acute (4) Anxiety state, unspecified: Status: Acute (5) Obstructive sleep apnea: Status: Acute Plan 1. Reviewed impression, plans, recommendations with patient 2. Answered his questions to his satisfaction 3. He is agreeable with above stated plans and recommendations Total Time Spent Total Time Spent: 30 minutes Subjective Date Seen: 05/23/25 Interval history: Admission history of present illness: ?50 year old man with the 24 hour history of epigastric pain radiating into the back. Some nausea with 1 episode of retching but no vomiting. No hematemesis or any other blood loss. Acknowledges drinking upwards of 1-2 pt of vodka (16- 32 oz) daily lately. States he lost his job in his home and now lives in apartment which has been hard on him and he has been drinking more in consequence of the same. Denies similar problem in the past. Denies icterus or jaundice. Denies dark urine or light-colored stool. Denies dysuria, urgency, frequency, hematuria. Denies diarrhea or constipation.? 05/23/2025: He had a restless night. He had tremors, diaphoresis, hypertension, tachycardia. In addition to lorazepam administered with CIWA protocol, received scheduled gabapentin 300 mg 3 times daily plus a dose of phenobarbital. Still rather diaphoretic this morning. Tolerating clear liquids and interested in eating more now. Abdominal discomfort still moderately severe. Was able to get up and take a shower today with assist. Exam Narrative: Exam Narrative: Examine him in his room. When I see him he is diaphoretic with tremors. Lungs are clear to auscultation. Heart tones with regular rhythm. Abdomen with the bowel sounds and subjective discomfort to palpation in the epigastrium. No rebound or guarding. Independent with transfers, station, gait. Skin is intact. Const: Vital Signs, click to edit/add: Vital Signs - 24 hr 05/22/25 15:45 05/22/25 15:45 05/22/25 15:45 Temperature 100.2 F H 100.2 F H Pulse Rate [Pulse Oximeter] 105 H 105 H 105 H Respiratory Rate 28 H 28 H 28 H Blood Pressure [Ri ght Arm] 158/103 H 158/103 H Pulse Oximetry 90 90 Oxygen Delivery Me thod Nasal Cannula Nasal Cannula Oxygen Flow Rate 1 1 05/22/25 15:45 05/22/25 19:00 05/22/25 19:00 Temperature 98.0 F 98.0 F Pulse Rate [Pulse Oximeter] 112 H 112 H Respiratory Rate 28 H 22 22 Blood Pressure [Ri ght Arm] 137/91 H 137/91 H Pulse Oximetry 90 91 91 Oxygen Delivery Me thod Nasal Cannula Nasal Cannula Nasal Cannula Oxygen Flow Rate 1 1 1 05/22/25 23:00 05/22/25 23:00 05/22/25 23:54 Temperature 97.2 F L 97.2 F L Pulse Rate [Pulse Oximeter] 115 H 115 H 111 H Respiratory Rate 24 24 24 Blood Pressure [Ri ght Arm] 153/91 H 153/91 H Pulse Oximetry 94 94 Oxygen Delivery Me thod Nasal Cannula Nasal Cannula Oxygen Flow Rate 2 2 05/22/25 23:54 05/23/25 00:04 05/23/25 01:00 Temperature 97.6 F 98.4 F Pulse Rate [Pulse Oximeter] 111 H 113 H Respiratory Rate 24 24 24 Blood Pressure [Ri ght Arm] 149/97 H 149/97 H Pulse Oximetry 95 95 94 Oxygen Delivery Me thod Nasal Cannula Nasal Cannula Nasal Cannula Oxygen Flow Rate 1 1 1 05/23/25 02:00 05/23/25 03:00 05/23/25 07:00 Temperature 97.9 F 98.2 F Pulse Rate [Pulse Oximeter] 112 H 114 H Respiratory Rate 24 24 24 Blood Pressure [Ri ght Arm] 139/88 128/87 Pulse Oximetry 91 92 91 Oxygen Delivery Me thod Nasal Cannula Nasal Cannula Nasal Cannula Oxygen Flow Rate 1 1 1 05/23/25 07:00 05/23/25 07:53 05/23/25 07:54 Temperature 98.9 F 98.9 F Pulse Rate [Pulse Oximeter] 110 H 110 H 110 H Respiratory Rate 24 24 24 Blood Pressure [Ri ght Arm] 154/104 H 154/104 H Pulse Oximetry 91 91 Oxygen Delivery Me thod Nasal Cannula Nasal Cannula Oxygen Flow Rate 1 1 05/23/25 11:46 05/23/25 11:47 Temperature 97.2 F L 97.2 F L Pulse Rate [Pulse Oximeter] 103 H 106 H Respiratory Rate 18 18 Blood Pressure [Ri ght Arm] 128/82 128/82 Pulse Oximetry 92 92 Oxygen Delivery Me thod Room Air Nasal Cannula Oxygen Flow Rate 1 Labs Labs: Laboratory Results - last 24 hr 05/23/25 05/23/25 05:54 08:24 WBC 13.32 H RBC 4.45 Hgb 14.1 Hct 43.2 MCV 97 MCH 32 MCHC 33 Plt Count 101 L VBG pH 7.393 VBG pCO2 47 VBG pO2 31.2 VBG HCO3 29 H Sodium 132 L Potassium 3.7 Chloride 99 Carbon Dioxide 28 Anion Gap 5 L BUN 11 Creatinine 0.8 Estimated Creat Clear 109.24 Estimated GFR 107 Glucose 135 H Lactate 1.1 Calcium 8.8 Phosphorus 3.4 Magnesium 1.6 Total Bilirubin 2.1 H Direct Bilirubin 1.2 H AST 65 H ALT 52 H Alkaline Phosphatase 96 C-Reactive Protein 39.6 H Total Protein 6.5 Albumin 3.6 Lipase 355 H Lab Acknowledgement Test Added
[2025-05-23] MEDS: PHENobarbitaL 260 MG in 0.9 % SODIUM CHLORIDE 100 ml 100 ML 208 MG IVPB (14:27)
--- NOTE | 2025-05-23 15:59 | PC.NURSE ---
End of shift-- Pt has been pleasant and cooperative, alert and oriented, but very drowsy throughout the day despite encouragement. VSS, though tachycardic with HR 100-110s, and pt is afebrile. SPO2 maintained >90% on 1L O2. While sleeping pt's O2 sats drop as low as 82% on RA. Pt c/o feeling sore with movement, but otherwise denied pain. He was given Oxycodone once today with apparent relief. LS CTA. CIWAs 4-6 today. Diaphoretic. Given scheduled phenobarbital only. He was up to the BR and shower independently and tolerated it well. Report to PROSPER Will.
[2025-05-23 18:35] LABS: Lactate* 2.7 mmol/L (0.5-1.9)
[2025-05-23 19:01] LABS: D Dimer Quantitative* 2.72 ug/ml (0.00-0.50)
--- NOTE | 2025-05-23 19:45 | CRLHL7_ITS ---
For Patients: As a result of the 21st Century Cures Act, medical imaging exams and procedure reports are released immediately into your electronic medical record. You may view this report before your referring provider. If you have questions, please contact your health care provider. INDICATION: Pulmonary embolism (PE) suspected, hypoxia and tachycardia. TECHNIQUE: CT chest PE was acquired with 95 cc Isovue 370 IV contrast. Multiplanar reformats performed including 3D MIP reconstructions. COMPARISON: CT abdomen pelvis 05/22/2025. FINDINGS: Heart and vasculature: No definite pulmonary embolism through the segmental branches. Limited evaluation distally due to motion. Main pulmonary artery is mildly dilated to 3.1 cm. No thoracic aortic aneurysm. Mild cardiomegaly. No pericardial effusion. No CT evidence of right heart strain. Lungs and pleura: Trace right and small left pleural effusions with associated compressive atelectasis. Additional consolidative opacities of the right upper lobe and left lower lobe. Mild ground-glass attenuation of the bilateral upper lobes. No pneumothorax. Patent central airways. Lymph nodes/mediastinum: No suspicious lymphadenopathy. Chest wall: No suspicious chest wall mass or fluid collection. Upper abdomen: Peripancreatic fat stranding, as noted on CT abdomen and pelvis from 05/22/2025. Bones: No acute abnormality. IMPRESSION: 1. No definite pulmonary embolism through the segmental branches. Limited evaluation distally due to motion. 2. Trace right and small left pleural effusions, new compared to prior abdominal CT. 3. Right upper lobe and bibasilar consolidative opacities may in part reflect atelectasis, however developing infectious process is not excluded in the appropriate clinical context. 4. Mild cardiomegaly. 5. Findings suggestive of acute pancreatitis, as noted on CT abdomen and pelvis from 05/22/2025. Please note that all CT scans at this facility use dose modulation, iterative reconstruction, and/or weight-based dosing when appropriate to reduce radiation dose to as low as reasonably achievable. Dictated by Jesse Roger MD @ 05/23/2025 8:56:07 PM (Electronically Signed)
[2025-05-23] MEDS: ENOXAPARIN 40 MG/0.4 ML INJ SUBCUT (21:06)
--- NOTE | 2025-05-23 23:18 | PC.NURSE ---
Patient alert and oriented x4 all shift. Continues on CIWA protocol. Patient diaphoretic however. No other withdrawal symptoms noted. Withdrawal managed by scheduled medications. No PRN medication given for withdrawal this shift. Started on tele. Sinus tachy on tele. Continues on 2LNC with SOB especially with ambulation. Patient also noted to be tachypneic. Patient encouraged to ambulate in and outside of the room however only ambulates to the bathroom. Needs alot of encouragement to get out of bed. Ambulates to the bathroom with SBA. Patient was given incentive spirometer. He reports that he uses it as often as he can ( reported to have used it 3 times this shift) IS upto 1750. Family at bedside today. Continues on IV fluids. IV site intact with no s.s of infection. Skin intact with no open areas.
[2025-05-24] VITALS (12 sets, daily range): BP systolic 133–154; BP diastolic 87–94; PULSE 81–104; RESP 20–28; TEMP 36.9–37.4; O2SAT 1–93
[2025-05-24] MEDS: ACETAMINOPHEN 325 MG TABLET 650 MG PO ×4 (05:01→22:43)
[2025-05-24] MEDS: OMEPRAZOLE 20 MG CAPSULE DR 40 MG PO (05:55)
[2025-05-24 06:21] LABS: Lactate* 0.8 mmol/L (0.5-1.9)
[2025-05-24 06:29] LABS: Hematocrit* 37.1 % (37.0-53.0); Hemoglobin* 11.9 gm/dL (13.5-17.5); Mean Corpuscular HGB Conc 32 gm/dL (32-36); Mean Corpuscular Hemoglobin 32 pg (26-34); Mean Corpuscular Volume 98 fL (80-100); Red Blood Count* 3.77 m/uL (4.30-5.90); White Blood Count* 12.18 K/uL (4.50-11.00)
--- NOTE | 2025-05-24 06:34 | PC.NURSE ---
End of shift [id number]: Pt AxOx3, cooperative, and pleasant with cares. Pt reports headache during shift and abdomen pain that was managed with PRN medication, environmental control, and repositioning. Linens changed x1 due to Pt being diaphoretic. Requiring NC oxygen 1-2 L for sats to remain >90%. Pt reports minimal SOB with activity that has improved per Pt report. Continent of the bladder. Makes needs known, using call light appropriately. Pt resting in bed, call light within reach.
[2025-05-24 06:42] LABS: Slide Review Reflex No
[2025-05-24 06:44] LABS: Albumin* 3.4 g/dL (3.3-5.0); Chloride* 96 mmol/L (96-114); Sodium* 131 mmol/L (135-149)
[2025-05-24 06:45] LABS: Potassium* 3.5 mmol/L (3.6-5.1)
[2025-05-24 06:46] LABS: Blood Urea Nitrogen* 13 mg/dL (7-30); Creatinine* 0.8 mg/dL (0.5-1.5); Est. Creatinine Clearance* 109.24; Estimated Glomerular Filt Rate 107 ml/min
[2025-05-24 06:47] LABS: Alanine Aminotransferase* 52 U/L (4-50); Alkaline Phosphatase* 115 U/L (40-150); Anion Gap 6 mEq/L (7-15); Aspartate Amino Transferase* 74 U/L (12-35); Bilirubin Direct* 0.9 mg/dL (0.0-0.5); Bilirubin Total* 1.4 mg/dL (0.1-1.5); Calcium* 9.0 mg/dL (8.4-10.6); Carbon Dioxide* 29 mmol/L (20-32); Glucose* 118 mg/dL (60-115); Total Protein* 6.6 g/dL (6.0-8.3)
[2025-05-24 06:48] LABS: Cholesterol* 133 mg/dL (90-199); HDL Cholesterol* 29 mg/dL (>=40); Triglycerides* 332 mg/dL (40-149)
[2025-05-24] MEDS: SERTRALINE 100 MG TABLET 150 MG PO (09:38)
[2025-05-24] MEDS: GABAPENTIN 300 MG CAPSULE PO ×3 (09:38→20:27)
[2025-05-24] MEDS: MULTIVITAMIN/MINERALS 1 TABLET 1 TAB PO (09:38)
[2025-05-24] MEDS: FOLIC ACID 1 MG TABLET PO (09:44)
[2025-05-24] MEDS: THIAMINE 100 MG TABLET 250 MG PO ×2 (10:09→20:27)
--- NOTE | 2025-05-24 15:50 | P.IMPN_ITS ---
Assessment and Plan Assessment and plan (1) Acute alcoholic pancreatitis: Problem comment: - Slowly advance diet as tolerated. IV fluids for now. - analgesics anti-emetics as needed - reviewed with him the pathophysiology of his condition. Recommended avoidance of alcohol consumption lifelong hereafter. 05/23/2025: Advance diet. Increase activity. Administer another dose of phenobarb. Continue with scheduled gabapentin 3 mg 3 times daily as well as p.r.n. [facility] protocol of lorazepam. Consider reimaging with CT scan of chest, abdomen, pelvis if has persistent fever. 05/24/2025: Abdominal discomfort much improved. Advanced diet and activity as tolerated. Status: Acute (2) Alcohol dependence: Problem comment: - recommended assessment and treatment for alcohol dependence and lifelong sobriety hereafter - social work msw to assess and assist Status: Acute (3) Tobacco use disorder: Status: Acute (4) Anxiety state, unspecified: Problem comment: Continue with supportive efforts Status: Acute (5) Obstructive sleep apnea: Problem comment: Continue with CPAP therapy Status: Acute (6) Alcohol withdrawal: Problem comment: - tremors, diaphoresis, tachycardia, hypertension, delirium - treated with lorazepam p.r.n. with [facility] protocol, scheduled gabapentin 300 mg 3 times daily, as well as phenobarbital 260 mg x 3 doses with resolution over a period of time of about 36-48 hours Status: Inactive Plan 1. Reviewed impression, plans, recommendations with patient, mother, stepfather 2. Answered their questions to their satisfaction 3. If condition continues to stabilize and improve he may be in a position to safely discharge from the hospital in the next 24-48 hours 4. They are agreeable with above stated plans and recommendations Total Time Spent Total Time Spent: 45 minutes Subjective Date Seen: 05/24/25 Interval history: Admission history of present illness: ?50 year old man with the 24 hour history of epigastric pain radiating into the back. Some nausea with 1 episode of retching but no vomiting. No hematemesis or any other blood loss. Acknowledges drinking upwards of 1-2 pt of vodka (16- 32 oz) daily lately. States he lost his job in his home and now lives in apartment which has been hard on him and he has been drinking more in consequence of the same. Denies similar problem in the past. Denies icterus or jaundice. Denies dark urine or light-colored stool. Denies dysuria, urgency, frequency, hematuria. Denies diarrhea or constipation.? 05/23/2025: He had a restless night. He had tremors, diaphoresis, hypertension, tachycardia. In addition to lorazepam administered with [facility] protocol, received scheduled gabapentin 300 mg 3 times daily plus a dose of phenobarbital. Still rather diaphoretic this morning. Tolerating clear liquids and interested in eating more now. Abdominal discomfort still moderately severe. Was able to get up and take a shower today with assist. 05/24/2025: No longer actively withdrawing from alcohol, including tremors, di aphoresis, hypertension, tachycardia, decreased awareness and more confusion. More awake. More interactive. Able to carry out more meaningful dialogue. Tolerating increased activities. Abdominal pain vastly improved now compared to previously. Exam Narrative: Exam Narrative: Examined patient in his hospital room. Awake, articulate, cooperative. Little recall of most of the events of yesterday. Presently awake and alert, oriented to self, place, situation, and even time. Lungs are clear to auscultation. Heart tones with regular rhythm. Abdomen with active bowel sounds, soft. Subjective discomfort to palpation without rebound or guarding. Protuberant abdomen. Extremities without edema. No focal motor neurologic deficits. No tremor, asterixis, or ataxia. Cranial nerves 3-12 grossly normal. Const: Vital Signs, click to edit/add: Vital Signs - 24 hr 05/23/25 15:55 05/23/25 16:00 05/23/25 16:00 Temperature 99.1 F Pulse Rate Pulse Rate [Pulse Oximeter] 115 H 115 H Respiratory Rate 22 22 22 Blood Pressure [Ri t Arm] 128/89 Pulse Oximetry 90 90 Oxygen Delivery Me thod Nasal Cannula Nasal Cannula Oxygen Flow Rate 2 2 05/23/25 20:02 05/23/25 21:30 05/23/25 23:23 Temperature 99.9 F H 98.8 F Pulse Rate 104 H Pulse Rate [Pulse Oximeter] 108 H Respiratory Rate 28 H Blood Pressure [Ri ght Arm] 126/81 Pulse Oximetry 94 Oxygen Delivery Me thod Nasal Cannula Oxygen Flow Rate 05/23/25 23:32 05/23/25 23:37 05/24/25 02:56 Temperature 99.8 F H 99.2 F Pulse Rate Pulse Rate [Pulse Oximeter] 96 104 H Respiratory Rate 27 H 27 H 28 H Blood Pressure [Ri ght Arm] 138/81 154/94 H Pulse Oximetry 92 92 90 Oxygen Delivery Me thod Nasal Cannula Nasal Cannula Nasal Cannula Oxygen Flow Rate 1.5 1.5 1 05/24/25 07:00 05/24/25 07:00 05/24/25 07:43 Temperature Pulse Rate 85 Pulse Rate [Pulse Oximeter] 85 Respiratory Rate 24 24 Blood Pressure [Ri ght Arm] Pulse Oximetry 92 Oxygen Delivery Me thod Nasal Cannula Oxygen Flow Rate 1 05/24/25 08:20 05/24/25 08:23 05/24/25 11:00 Temperature 98.9 F 98.9 F 98.4 F Pulse Rate Pulse Rate [Pulse Oximeter] 81 85 97 Respiratory Rate 24 24 22 Blood Pressure [Ri ght Arm] 143/87 H 143/87 H 142/90 H Pulse Oximetry 90 92 88 Oxygen Delivery Me thod Nasal Cannula Nasal Cannula Room Air Oxygen Flow Rate 1 1 05/24/25 12:27 05/24/25 12:28 Temperature 98.4 F Pulse Rate Pulse Rate [Pulse Oximeter] 97 Respiratory Rate 22 Blood Pressure [Ri ght Arm] 142/90 H Pulse Oximetry 91 91 Oxygen Delivery Me thod Nasal Cannula Nasal Cannula Oxygen Flow Rate 1.5 1.5 Labs Labs: Laboratory Results - last 24 hr 05/23/25 05/24/25 18:30 05:54 WBC 12.18 H RBC 3.77 L Hgb 11.9 L Hct 37.1 MCV 98 MCH 32 MCHC 32 Plt Count 96 L D-Dimer Quant (PE/DVT) 2.72 H Sodium 131 L Potassium 3.5 L Chloride 96 Carbon Dioxide 29 Anion Gap 6 L BUN 13 Creatinine 0.8 Estimated Creat Clear 109.24 Estimated GFR 107 Glucose 118 H Lactate 2.7 H 0.8 Calcium 9.0 Phosphorus 2.4 L Magnesium 2.1 Total Bilirubin 1.4 Direct Bilirubin 0.9 H AST 74 H ALT 52 H Alkaline Phosphatase 115 Troponin I < 0.01 C-Reactive Protein 43.6 H Total Protein 6.6 Albumin 3.4 Triglycerides 332 H Cholesterol 133 LDL Cholesterol, Calc 38 HDL Cholesterol 29 L Lipase 130
[2025-05-24] MEDS: POTASSIUM CHLORIDE 10 MEQ CAPSULE ER 40 MEQ PO (16:28)
--- NOTE | 2025-05-24 20:03 | PC.NURSE ---
End of shift-- Pleasant and cooperative, alert and oriented patient was much more alert today. VSS and highest temp 99.1. SPO2 >90% on 1L per n.c. Noted to drop as low as 86% on RA. CIWA assessment 8, 4 and 6 today and patient was not given any ativan. Pt c/o a headache today, but stated that abdominal pain was nearly gone. Pt was given 2.5mg oxycodone in addition to scheduled Tylenol but stated it was unrelieved. He was given an ice pack and room was darkened. He denied any nausea and ate a regular diet without difficulty. BS+ x4, but pt stated no Bm since 05/21. He was given prune juice with dinner and declined any further intervention. LS CTA. He was up to the BR, chair, shower and ambulating hallways independently and tolerated it well. Report to PROSPER Donaldson.
[2025-05-24] MEDS: ENOXAPARIN 40 MG/0.4 ML INJ SUBCUT (20:26)
[2025-05-24] MEDS: SODIUM CHLORIDE 0.9 % (FLUSH) 10 ML SYRINGE 5 ML IVF (20:27)
[2025-05-25] VITALS (9 sets, daily range): BP systolic 120–150; BP diastolic 83–101; PULSE 76–96; RESP 16–22; TEMP 36.4–37.6; O2SAT 92–98
[2025-05-25] MEDS: ACETAMINOPHEN 325 MG TABLET 650 MG PO ×4 (04:34→22:29)
[2025-05-25] MEDS: OMEPRAZOLE 20 MG CAPSULE DR 40 MG PO (06:26)
[2025-05-25 06:43] LABS: Hematocrit* 37.9 % (37.0-53.0); Hemoglobin* 12.4 gm/dL (13.5-17.5); Mean Corpuscular HGB Conc 33 gm/dL (32-36); Mean Corpuscular Hemoglobin 32 pg (26-34); Mean Corpuscular Volume 98 fL (80-100); Red Blood Count* 3.88 m/uL (4.30-5.90); White Blood Count* 10.02 K/uL (4.50-11.00)
[2025-05-25 06:55] LABS: Lactate* 1.1 mmol/L (0.5-1.9)
[2025-05-25 07:01] LABS: Slide Review Reflex No
[2025-05-25 07:18] LABS: Chloride* 96 mmol/L (96-114)
[2025-05-25 07:19] LABS: Albumin* 3.5 g/dL (3.3-5.0); Potassium* 3.5 mmol/L (3.6-5.1); Sodium* 130 mmol/L (135-149)
--- NOTE | 2025-05-25 07:20 | PC.NURSE ---
End of shift [id number]: Pt AxOx3, cooperative, and pleasant with cares. Pt reports headache during shift that was relieved with PRN medication and an ice pack. Linens changed x2 due to Pt being diaphoretic. Requiring NC oxygen 1L for sats to remain >90% during sleep. Continent of the bladder. Indep in room. Pt resting in bed, call light within reach.
[2025-05-25 07:21] LABS: INR 1.07 (0.91-1.10); Prothrombin Time 14.8 Seconds
[2025-05-25 07:22] LABS: Alanine Aminotransferase* 45 U/L (4-50); Alkaline Phosphatase* 148 U/L (40-150); Anion Gap 4 mEq/L (7-15); Aspartate Amino Transferase* 47 U/L (12-35); Bilirubin Direct* 0.6 mg/dL (0.0-0.5); Bilirubin Total* 0.9 mg/dL (0.1-1.5); Blood Urea Nitrogen* 15 mg/dL (7-30); Carbon Dioxide* 30 mmol/L (20-32); Creatinine* 0.8 mg/dL (0.5-1.5); Est. Creatinine Clearance* 109.24; Estimated Glomerular Filt Rate 107 ml/min; Total Protein* 6.8 g/dL (6.0-8.3)
[2025-05-25 07:23] LABS: Calcium* 8.9 mg/dL (8.4-10.6); Glucose* 155 mg/dL (60-115)
[2025-05-25] MEDS: MULTIVITAMIN/MINERALS 1 TABLET 1 TAB PO (09:04)
[2025-05-25] MEDS: THIAMINE 100 MG TABLET 250 MG PO ×2 (09:04→20:44)
[2025-05-25] MEDS: SERTRALINE 100 MG TABLET 150 MG PO (09:05)
[2025-05-25] MEDS: FOLIC ACID 1 MG TABLET PO (09:05)
[2025-05-25] MEDS: SODIUM CHLORIDE 0.9 % (FLUSH) 10 ML SYRINGE 5 ML IVF ×2 (09:06→20:45)
[2025-05-25] MEDS: GABAPENTIN 300 MG CAPSULE PO ×3 (09:06→20:44)
--- NOTE | 2025-05-25 09:53 | W.PC.NUTR.NO ---
Nutrition Progress Note Progress Note Progress Note: RDN with diet education related to alcoholic pancreatitis. Patient admitted with abdominal pain, found to have alcoholic pancreatitis. History includes alcohol dependence. Per weight records, patient's weight has remained stable around 104 kg. Current weight 104.644 kg; height 175.26 cm; BMI 34.1 kg/m2. He is tolerating a Regular. Visited with patient whom reports this is his first time having this diagnosis. Patient agreed to receive diet education related to pancreatitis. Patient was provided diet education on a low fat diet. Discussed foods to include and foods to avoid. Education also provided following a low fat diet (about 60 grams/day) long-term. Verbal and written information as well as a sample menu provided from [facility]. Patient verbalized understanding. RDN's contact information was provided and patient was encouraged to contact RDN with questions.
--- NOTE | 2025-05-25 15:36 | PC.NURSE ---
End of shift report [id number]: Pleasant and cooperative with cares. Headache reported and well managed with current regimen. CIWA scores WNL. Patient does appear to be profusely diaphoretic at times, requires linen change 2x this shift. Denies any visual or auditory hallucinations or tremor. MD updated with patients symptoms, new order for oral phenobarbital. Independent with ambulation.
--- NOTE | 2025-05-25 15:53 | P.IMPN_ITS ---
Assessment and Plan Assessment and plan (1) Acute alcoholic pancreatitis: Problem comment: - Slowly advance diet as tolerated. IV fluids for now. - analgesics anti-emetics as needed - reviewed with him the pathophysiology of his condition. Recommended avoidance of alcohol consumption lifelong hereafter. 05/23/2025: Advance diet. Increase activity. Administer another dose of phenobarb. Continue with scheduled gabapentin 3 mg 3 times daily as well as p.r.n. [facility] protocol of lorazepam. Consider reimaging with CT scan of chest, abdomen, pelvis if has persistent fever. 05/24/2025: Abdominal discomfort much improved. Advanced diet and activity as tolerated. Status: Acute (2) Alcohol withdrawal: Problem comment: - tremors, diaphoresis, tachycardia, hypertension, delirium - treated with lorazepam p.r.n. with [facility] protocol, scheduled gabapentin 300 mg 3 times daily, as well as phenobarbital 260 mg x 3 doses with resolution over a period of time of about 36-48 hours - the phenobarbital last given on 05/23 has likely slowly faded/weaned. more anxious today. one dose of oral phenobarb was followed by IV bolus. - continue to safely monitor his alcohol withdrawal as an inpatient. Status: Inactive (3) Alcohol dependence: Problem comment: - recommended assessment and treatment for alcohol dependence and lifelong sobriety hereafter - family welfare social work professor to assess and assist Status: Acute (4) Tobacco use disorder: Status: Acute (5) Anxiety state, unspecified: Problem comment: Continue with supportive efforts -zoloft 150mg daily Status: Acute (6) Obstructive sleep apnea: Problem comment: Continue with CPAP therapy Status: Acute Subjective Date Seen: 05/25/25 Interval history: Daily Progress Note - Hospital Medicine #:4 CC: alcohol induced pancreatitis; alcohol withdrawal 24 HOUR UPDATE: pancreatitis is resolving; eating is much improved. labs improving quite diaphoretic today; more anxious. He states, I'm not thru my shit yet - I've done this for years and I don't think we've seen the peak yet Objective: diaphoretic, mild pressured speech, anxious, increasing tachycardia as day goes on. Vitals: see above Lungs: Clear. Cardiac: S1S2. abdomen: non-acute; tender mildly/generally Disposition/Potential discharge - 1-2 more day so we can manage the most acute symptoms. Today I spent 50minutes seeing the patient, reviewing [facility] and [facility] notes/diagnostics, discussing the care plan with our care time that includes social work, PT/OT, pharmacy, RT, snf and documenting my impressions and plan in the medical record. Exam Const: Vital Signs, click to edit/add: Vital Signs - 24 hr 05/24/25 19:51 05/24/25 22:47 05/24/25 22:53 Temperature 99.2 F 99.2 F Pulse Rate [Pulse Oximeter] 96 92 Respiratory Rate 20 26 H 26 H Blood Pressure [Ri ght Arm] 136/88 133/88 Pulse Oximetry 93 93 93 Oxygen Delivery Me thod Nasal Cannula Nasal Cannula Nasal Cannula Oxygen Flow Rate 1 0.5 0.5 05/25/25 02:34 05/25/25 04:34 05/25/25 07:00 Temperature 99.7 F H 99.2 F 97.6 F Pulse Rate [Pulse Oximeter] 80 76 Respiratory Rate 16 22 Blood Pressure [Ri ght Arm] 150/101 H 120/83 Pulse Oximetry 92 96 Oxygen Delivery Me thod Room Air Room Air Oxygen Flow Rate 1 05/25/25 07:00 05/25/25 07:00 05/25/25 11:00 Temperature 98.8 F Pulse Rate [Pulse Oximeter] 76 96 Respiratory Rate 22 18 Blood Pressure [Ri ght Arm] 138/87 Pulse Oximetry 96 98 Oxygen Delivery Me thod Room Air Room Air Oxygen Flow Rate 1 Labs Labs: Laboratory Results - last 24 hr 05/25/25 05/25/25 06:08 06:55 WBC 10.02 RBC 3.88 L Hgb 12.4 L Hct 37.9 MCV 98 MCH 32 MCHC 33 Plt Count 120 L INR 1.07 Sodium 130 L Potassium 3.5 L Chloride 96 Carbon Dioxide 30 Anion Gap 4 L BUN 15 Creatinine 0.8 Estimated Creat Clear 109.24 Estimated GFR 107 Glucose 155 H Lactate 1.1 Calcium 8.9 Phosphorus 2.7 Magnesium 2.3 Total Bilirubin 0.9 Direct Bilirubin 0.6 H AST 47 H ALT 45 Alkaline Phosphatase 148 C-Reactive Protein 35.3 H Total Protein 6.8 Albumin 3.5
--- NOTE | 2025-05-25 16:06 | PC.SOCIAL ---
Social Service Consult: SW attempted to meet with patient however, he was sleeping. SW went to meet with patient again around 1100, but patient requested SW return after he eats breakfast. SW was unable to meet with patient again today. SW to follow-up tomorrow.
[2025-05-25] MEDS: PHENobarbitaL 260 MG in 0.9 % SODIUM CHLORIDE 100 ml 100 ML 208 MG IVPB (16:44)
[2025-05-25] MEDS: ENOXAPARIN 40 MG/0.4 ML INJ SUBCUT (20:44)
--- NOTE | 2025-05-25 21:53 | PC.NURSE ---
Patient Independent with ambulation, continent of bowel and bladder. CIWAS completred as ordered, highest score a 3. He is alert and oriented, PIV in Right AC patent.Patient showered and bedding changed. possibly discharging 05/26.
[2025-05-26 02:56] VITALS: BP 141/91; PULSE 70; RESP 18; TEMP 37.1; O2SAT 90
[2025-05-26] MEDS: ACETAMINOPHEN 325 MG TABLET 650 MG PO ×2 (04:37→09:51)
[2025-05-26] MEDS: OMEPRAZOLE 20 MG CAPSULE DR 40 MG PO (06:28)
[2025-05-26 06:42] LABS: Hematocrit* 37.5 % (37.0-53.0); Hemoglobin* 12.2 gm/dL (13.5-17.5); Immature Granulocytes Abs Auto 0.30 K/uL (0.00-0.30); Immature Granulocytes Pct Auto 3.9 %; Lymphocytes Absolute Auto 1.50 K/uL (0.90-2.90); Mean Corpuscular HGB Conc 33 gm/dL (32-36); Mean Corpuscular Hemoglobin 32 pg (26-34); Mean Corpuscular Volume 97 fL (80-100); RDW Coefficient of Variation % 12.8 % (11.5-15.5); Red Blood Count* 3.86 m/uL (4.30-5.90); White Blood Count* 7.68 K/uL (4.50-11.00)
--- NOTE | 2025-05-26 06:44 | PC.NURSE ---
End of shift: Pt pleasant, alert and oriented. VSS. CIWAs unremarkable. Independent. Nicotine patch to left shoulder. Pt in bed, appears to be resting, call light within reach.
[2025-05-26 06:45] LABS: Slide Review Reflex No
[2025-05-26 06:59] LABS: Albumin* 3.5 g/dL (3.3-5.0); Chloride* 99 mmol/L (96-114); Potassium* 3.5 mmol/L (3.6-5.1)
[2025-05-26 07:00] VITALS: RESP 18; O2SAT 94
[2025-05-26 07:02] LABS: Alanine Aminotransferase* 56 U/L (4-50); Alkaline Phosphatase* 194 U/L (40-150); Aspartate Amino Transferase* 78 U/L (12-35); Bilirubin Total* 0.6 mg/dL (0.1-1.5); Blood Urea Nitrogen* 18 mg/dL (7-30); Carbon Dioxide* 29 mmol/L (20-32); Creatinine* 0.7 mg/dL (0.5-1.5); Est. Creatinine Clearance* 124.85; Estimated Glomerular Filt Rate 112 ml/min; Total Protein* 7.0 g/dL (6.0-8.3)
[2025-05-26 07:03] LABS: Calcium* 9.1 mg/dL (8.4-10.6); Glucose* 140 mg/dL (60-115)
[2025-05-26 07:45] LABS: Anion Gap 9 mEq/L (7-15); Sodium* 137 mmol/L (135-149)
[2025-05-26 08:00] VITALS: PULSE 66; RESP 18
[2025-05-26 08:02] VITALS: BP 138/94; PULSE 66; RESP 18; TEMP 36.7; O2SAT 94
[2025-05-26] MEDS: THIAMINE 100 MG TABLET 250 MG PO (09:17)
[2025-05-26] MEDS: MULTIVITAMIN/MINERALS 1 TABLET 1 TAB PO (09:18)
[2025-05-26] MEDS: GABAPENTIN 300 MG CAPSULE PO (09:18)
[2025-05-26] MEDS: FOLIC ACID 1 MG TABLET PO (09:18)
[2025-05-26] MEDS: SERTRALINE 100 MG TABLET 150 MG PO (09:18)
[2025-05-26] MEDS: SODIUM CHLORIDE 0.9 % (FLUSH) 10 ML SYRINGE 5 ML IVF (09:19)
--- NOTE | 2025-05-26 10:32 | PC.SOCIAL ---
Discharge planning: home health care worker met with the pt today and provided him with information on [facility] in [place], as the pt will need assistance with applying for health insurance, seeing if he qualifies for [facility] assistance to pay for chemical dependency treatment, food assistance, financial assistance for his rent and energy assistance for his utilities. Pt was very receptive to the information and shared that he plans to go to the [facility] later today after her is discharged from the hospital. home health care worker also provided the pt with a list of Substance Abuse Treatment facilities in and around [place]. Pt states that he prefers to do inpatient treatment vs. outpatient treatment and is hoping that he qualifies for inpatient treatment from the comprehensive chemical health assessment that he plans to complete. Pt also has the contact information for the social workers at the hospital if he should have any more questions arise. Social work to follow-up as needed.
--- NOTE | 2025-05-26 10:58 | PC.SOCIAL ---
Discharge planning: line out worker met with the pt today and provided him with information on [facility] [place], as the pt will need assistance with applying for health insurance, seeing if he qualifies for [facility] assistance to pay for chemical dependency treatment, food assistance, financial assistance for his rent and energy assistance for his utilities. Pt was very receptive to the information and shared that he plans to go to the [facility] later today after he is discharged from the hospital. line out worker also provided the pt with a list of Substance Abuse Treatment facilities in and around [place]. Pt states that he prefers to do inpatient treatment vs. outpatient treatment and is hoping that he qualifies for inpatient treatment from the comprehensive chemical health assessment that he plans to complete for chemical dependency treatment payment assistance. The [facility] has a great Recovery Support Navigator program that can assist the pt with getting his chemical health assessment completed for chemical dependency treatment and they can also help him with looking for a chemical dependency treatment center. Pt also has the contact information for the social workers at the hospital if he should have any more questions arise. Social work to follow-up as needed.
--- NOTE | 2025-05-26 11:47 | PC.NURSE ---
Discharge: Patient pleasant and cooperative, A&O. VSS, afebrile. SpO2 maintained above 90% on RA. Pt reports a mild headache this shift, managed with scheduled Tylenol, see OCT. IV removed with tip intact. Discharge instructions provided, all questions answered. Discharged to home.
--- NOTE | 2025-05-26 17:05 | P.DS_ITS ---
DS: Providers Provider Date Seen: 05/26/25 Date of admission: 05/22/25 09:06 Primary care physician: Not a Local Provider Admitting Clinician: Matt Guerra MD Consults: 05/22/25 09:45 Consult to International Bank Manager [CONS] Routine Comment: Alcohol use disorder Reason for Consult:: Social Service Consult Attending Physician on discharge: Nikky Ojeda MD [facility] Date of Discharge: 05/26/25 DS: Diagnosis Discharge Diagnosis (1) Acute alcoholic pancreatitis: Status: Acute Problem details: - Slowly advance diet as tolerated. IV fluids for now. - analgesics anti-emetics as needed - reviewed with him the pathophysiology of his condition. Recommended avoidance of alcohol consumption lifelong hereafter. 05/23/2025: Advance diet. Increase activity. Administer another dose of phenobarb. Continue with scheduled gabapentin 3 mg 3 times daily as well as p.r.n. CIWA protocol of lorazepam. Consider reimaging with CT scan of chest, abdomen, pelvis if has persistent fever. 05/24/2025: Abdominal discomfort much improved. Advanced diet and activity as tolerated. 05/26 - discharged delayed b/c of withdrawal (2) Alcohol withdrawal: Status: Acute Problem details: rec'd IV and oral phenobarbital -resolved by 05/26 (3) Anxiety state, unspecified: Status: Acute Problem details: Continue with supportive efforts -zoloft 150mg daily (4) Obstructive sleep apnea: Status: Acute Problem details: Continue with CPAP therapy (5) Tobacco use disorder: Status: Acute (6) Alcohol dependence: Status: Acute Problem details: - recommended assessment and treatment for alcohol dependence and lifelong sobriety hereafter - secondary social studies teacher to assess and assist DS: Summary Hospital Course Hospital Course: QUESTIONS TO ASK AT FOLLOW-UP: 1. Discuss alcohol abstinence and resources - may be naltrexone is an option for this patient 2. How is the pain? BRIEF HOSPITAL COURSE: Patient was admitted for 5 days. Synopsis of acute inpatient issues are outlined above. Chronic medical conditions with notable findings outlined above. Pt had acute alcoholic pancreatitis complicated by alcohol withdrawal. He rec'd supportive cares (IV fluids and analgesia) for the pancreatitis. This resolved. He received IV phenobarbital for alcohol withdrawal. This resolved. We encouraged him to work with our sr. social media & mobile manager for resources on per minute lifelong alcohol abstinence. DISCHARGE MEDICATIONS: See Reconciled list -no significant changes Specific instructions to the patient and follow-up are outlined below. REVIEW OF SYSTEMS No new chest pain or dyspnea Pain controlled No voiding difficulties Tolerating diet challenge PHYSICAL EXAM: CONSTITUTIONAL: Conversive, good historian. A/O. Knows setting and context. GENERAL: Well-developed and above ideal body weight, in no respiratory distress. VITAL SIGNS: see record. Tachycardia resolved HEENT: Sclerae are anicteric. No petechiae. CARDIAC: rhythm is regular. There is no S3 or rub. No harsh murmurs. Extremities show trace edema with symmetrical pulses. PULM: good air entry with no wheeze. ABDOMEN: Soft. Nontender. NEURO: Speech is fluent. A brief neurologic exam is negative. SKIN: No rashes, petechiae, concerning changes PSYCHIATRIC: Euthymic. DISPOSITION: Self-care Time spent on discharge 37 minutes. Status at Discharge Functional status at discharge: independent ambulation Overall status at discharge: patient is back to baseline Time Spent with Patient Time attestation: Total time spent providing and/or coordinating discharge services: Time spent: Greater than 30 minutes Exam Const: Vital Signs, click to edit/add: Vital Signs - 24 hr 05/25/25 18:49 05/25/25 18:53 05/25/25 22:50 Temperature 97.6 F 97.8 F 99.4 F Pulse Rate [Pulse Oximeter] 86 86 77 Respiratory Rate 16 16 18 Blood Pressure [Ri t Arm] 131/84 137/89 Pulse Oximetry 95 98 92 Oxygen Delivery Me thod Room Air Room Air Room Air 05/25/25 23:00 05/25/25 23:00 05/25/25 23:00 Temperature 99.4 F Pulse Rate [Pulse Oximeter] 77 77 Respiratory Rate 18 18 Blood Pressure [Ri t Arm] 137/89 Pulse Oximetry 92 93 Oxygen Delivery Me thod Room Air Room Air 05/26/25 02:56 05/26/25 07:00 05/26/25 08:00 Temperature 98.7 F Pulse Rate [Pulse Oximeter] 70 66 Respiratory Rate 18 18 18 Blood Pressure [Ri t Arm] 141/91 H Pulse Oximetry 90 94 Oxygen Delivery Me thod Room Air Room Air 05/26/25 08:02 05/26/25 08:02 Temperature 98.1 F 98.1 F Pulse Rate [Pulse Oximeter] 66 66 Respiratory Rate 18 18 Blood Pressure [Ri ght Arm] 138/94 H 138/94 H Pulse Oximetry 94 94 Oxygen Delivery Me thod Room Air Room Air DS: Data Data Completed and Pending Labs on day of discharge: Labs from last 24 hours 05/26/25 06:00 WBC 7.68 RBC 3.86 L Hgb 12.2 L Hct 37.5 MCV 97 MCH 32 MCHC 33 RDW Coeff of Myke 12.8 Plt Count 159 Neut % (Auto) 63.4 Lymph % (Auto) 19.5 L Daniels % (Auto) 9.8 Eos % (Auto) 3.0 Baso % (Auto) 0.4 Neut # (Auto) 4.87 Lymph # (Auto) 1.50 Daniels # (Auto) 0.80 Eos # (Auto) 0.23 Baso # (Auto) 0.03 Abs Immat Gran (auto) 0.30 Imm/Tot Granulo (auto) 3.9 Sodium 137 Potassium 3.5 L Chloride 99 Carbon Dioxide 29 Anion Gap 9 BUN 18 Creatinine 0.7 Estimated Creat Clear 124.85 Estimated GFR 112 Glucose 140 H Calcium 9.1 Magnesium 2.3 Total Bilirubin 0.6 AST 78 H ALT 56 H Alkaline Phosphatase 194 H C-Reactive Protein 19.8 H Total Protein 7.0 Albumin 3.5 Discharge Plan Discharge Disposition: Home, Self-Care Date of Admission: 05/22/25 09:06 Attending Provider on Discharge: Nikky Ojeda Primary Care Provider: Provider,Not a Local Condition: Improved Anticipated Discharge Date/Time: 05/26/25 10:16 Discharge Medications: Continued sertraline 100 mg tablet 150 mg PO DAILY omeprazole 10 mg capsule,delayed release(DR/EC) 10 mg PO QDAY rosuvastatin 10 mg tablet 10 mg PO QPM pantoprazole 40 mg tablet,delayed release (DR/EC) 40 mg PO DAILY Discharge Orders: Discharge Order (Routine); Ordered 05/26/25 Ordered By: Nikky Ojeda Patient Education: Pancreatitis (DC), Alcohol Withdrawal (DC), Alcohol Dependence (DC) Additional Instructions: Our recommendation is lifetime sobriety Please use the resources we've outlined for you for ongoing help with alcohol use disorder. Activity Level: No Restrictions Discharge Diet: Regular Follow Up Appointments: Provider,Not a Local [Primary Care Provider, Family Practice] Referral Note: patient can make an appointment for himself and/or [facility] [place] [facility] for him to establish with Forms: ModuleQ Info Instructions
== END 2025-05-26 11:25 | disposition home or self-care (01) | DRG 439 ==
LOC: ED 08:13 → MEDSURG 09:06
PROVIDERS: Family Medicine; Admitting Provider Internal Medicine; Emergency Provider Family Medicine; Visit Provider Internal Medicine
DX: K85.20 Alcohol induced acute pancreatitis without necrosis or infection (principal); F10.231 Alcohol dependence with withdrawal delirium; I10 Essential (primary) hypertension; K70.0 Alcoholic fatty liver; G47.33 Obstructive sleep apnea (adult) (pediatric); F32.A Depression, unspecified; E66.3 Overweight; Z68.34 Body mass index [BMI] 34.0-34.9, adult; K21.9 Gastro-esophageal reflux disease without esophagitis; F41.1 Generalized anxiety disorder; F17.210 Nicotine dependence, cigarettes, uncomplicated; J45.909 Unspecified asthma, uncomplicated; E78.5 Hyperlipidemia, unspecified
CPT/HCPCS: 36415; 71275; 74177; 76705; 80048; 80053; 80061; 80076; 81001; 82248; 82803; 83605; 83690; 83735; 84100; 84484; 85025; 85027; 85379; 85610; 86140; 94761; 99285; A9153; A9270; J1171; J1650; J2405; J2560; J7030; Q9967; S4990